=== PATIENT | male | born 1940 | race Caucasian/White ===

== ENCOUNTER 2017-09-15 13:29 | Outpatient (CLI) | payer MEDICARE ==
--- NOTE | 2017-09-15 15:27 | RAD ---
RIGHT SHOULDER THREE VIEWS: History: Right shoulder pain. Myeloma. FINDINGS: Innumerable small lytic lesions are present throughout the ribs, scapula, and humerus. There are dege nerative changes of the acromioclavicular and glenohumeral joints. No acute fracture or dislocation a re visible. IMPRESSION: Severe myelomatous involvement of the right shoulder. Moderate osteoarthritic changes. POS: [facility]
--- NOTE | 2017-09-15 16:11 | RAD ---
LEFT HIP TWO VIEWS: 09/15/17 HISTORY: Myeloma. COMPARISON: Numerous prior examinations. FINDINGS: There is no pathologic fracture. Severe degenerative change of the left hip with articular surface re modeling of the femoral head. There is buttressing of the medial femoral cortex. IMPRESSION: 1. Extensive myeloma. 2. No pathologic fracture. POS: [facility]
== END 2017-09-15 13:30 | disposition home or self-care (01) ==
LOC: RAD 13:29
PROVIDERS: ATTEND Nurse Practitioner Family
DX: C90.00 Multiple myeloma not having achieved remission (principal); M19.011 Primary osteoarthritis, right shoulder
CPT/HCPCS: 80053; 82248; 83615; 84100; 84165; 84550

== ENCOUNTER 2017-09-24 09:17 | Outpatient (CLI) | payer MEDICARE ==
--- NOTE | 2017-09-24 14:20 | EKG ---
Test Reason : Blood Pressure : / mmHG Vent. Rate : 107 BPM Atrial Rate : 107 BPM P-R Int : 166 ms QRS Dur : 150 ms QT Int : 376 ms P-R-T Axes : 070 -22 055 degrees QTc Int : 501 ms Sinus tachycardia Right bundle branch block Abnormal ECG When compared with ECG of 13-MAR-1999 13:57, Right bundle branch block is now Present Confirmed by DR. Keo CHAUDHRY ([id number]) on 09/24/2017 2:19:49 PM Referred By: AALIYAH Confirmed By:DR. Keo CHAUDHRY
== END 2017-09-24 09:18 | disposition home or self-care (01) ==
LOC: EKG 09:17
PROVIDERS: ATTEND Nurse Practitioner Family
DX: Z92.29 Personal history of other drug therapy (principal)
CPT/HCPCS: 93005; 93010

== ENCOUNTER 2018-06-08 18:49 | Emergency (ER) | payer MEDICARE ==
[2018-06-08 20:44] LABS: #Basophils 0.1 thou/uL (0.0-0.2); #Eosinphils 0.2 thou/uL (0.0-0.7); #Lymphocytes 1.2 thou/uL (1.20-3.40); #Monocytes 0.5 thou/uL (0.11-0.59); #Neutrophils 2.2 thou/uL (1.40-6.50); %Basophils 2.1 % (0.0-1.0); %Eosinophils 5.3 % (0.0-10.0); %Lymphocytes 27.9 % (21.0-51.0); %Neutrophils 53.6 % (42.0-75.0); Hemoglobin 11.5 g/dL (14.0-18.0); Mean Corpuscular HGB CONC 33.5 g/dL (32.0-36.0); Mean Corpuscular Volume 98.4 fL (78.0-98.0); Mean Platelet Volume 6.6 fL (7.4-10.4); Platelet Count 221 thou/uL (130-400); RBC Distribution Width 12.6 % (11.5-14.5); White Blood Cell (WBC) Count 4.1 thou/uL (4.8-10.8)
[2018-06-08 22:03] LABS: ALT (SGPT) 15 U/L (8-55); AST (SGOT) 20 U/L (5-34); Albumin 4.2 g/dL (3.4-4.8); Alkaline Phosphatase 104 U/L (40-150); Anion Gap 11 mmol/L (10-20); BUN (Urea Nitrogen) 24 mg/dL (8.4-25.7); Bilirubin, Total 0.3 mg/dL (0.2-1.2); Calc. Creatinine Clearance 0 mL/min (70-130); Calcium 10.6 mg/dL (7.8-10.44); Carbon Dioxide 33 mmol/L (23-31); Chloride 98 mmol/L (98-107); Estimated GFR-MDRD 50; Globulin 2.8 g/dL (2.4-3.5); Glucose 118 mg/dL (83-110); Potassium 3.8 mmol/L (3.5-5.1); Sodium 138 mmol/L (136-145)
== END 2018-06-08 22:28 | disposition home or self-care (01) ==
LOC: ERS 18:49
DX: T46.4X1A Poisoning by angiotensin-converting-enzyme inhibitors, accidental (unintentional), initial encounter (principal); E78.5 Hyperlipidemia, unspecified; I10 Essential (primary) hypertension; Z79.899 Other long term (current) drug therapy
CPT/HCPCS: 80053; 85025; 93005

== ENCOUNTER 2018-09-01 17:16 | Inpatient (IN) | payer MEDICARE ==
[2018-09-01] MEDS ORDERED: Ondansetron ODT 4 MG TAB PO PRN (17:51)
[2018-09-01] MEDS ORDERED: Nitroglycerin 0.4 MG TAB (25 Tab Bottle) SL PRN (17:51)
[2018-09-01] MEDS ORDERED: Acetaminophen 325 MG TAB PO PRN (17:51)
[2018-09-01] MEDS ORDERED: Ondansetron PF 4 MG/2 ML Vial IVP PRN (17:51)
[2018-09-01] MEDS ORDERED: hydrALAZINE 20 MG/ML VIAL SLOW IVP PRN (17:51)
[2018-09-01] MEDS ORDERED: Calcium Carbonate 500 MG ChewTAB PO PRN (17:51)
[2018-09-01] MEDS ORDERED: cloNIDine 0.1 MG TAB PO PRN (17:51)
[2018-09-01] MEDS ORDERED: Bisacodyl 10 MG SUPP PR PRN (17:51)
[2018-09-01] MEDS ORDERED: Sodium Chloride 0.65% Nasal 44 ML BOT EA NARE PRN (17:51)
[2018-09-01] MEDS ORDERED: Diabetic Tussin 200 MG/10 ML UDCUP PO PRN (17:51)
[2018-09-01] MEDS ORDERED: Bisacodyl 5 MG TAB PO PRN (17:51)
[2018-09-01] MEDS ORDERED: Benzonatate 100 MG CAP PO PRN (17:51)
[2018-09-01] MEDS ORDERED: Senokot S 8.6-50 MG TAB PO PRN (17:51)
[2018-09-01] MEDS ORDERED: traMADol HCl 50 MG TAB PO PRN (18:19)
--- NOTE | 2018-09-01 20:44 | HP ---
PRIMARY CARE PHYSICIAN: None. PRIMARY ONCOLOGIST: Dr. Stein. CHIEF COMPLAINT: Generalized weakness, weight loss, poor appetite, and muscle and bone pain. HISTORY OF PRESENTING ILLNESS: Mr. Hill is a very pleasant 78-year-old male with past medical history of multiple myeloma, currently in remission, who presented as a direct admit from Oncology Clinic. He was seen today in the Oncology Clinic because of complaints of generalized weakness and had some blood work drawn. He was found to have a hemoglobin down to 8.8 and calcium up to 14.6 with a creatinine also elevated to 1.66. History is mainly obtained by the patient himself and the case has been discussed with Dr. Stein who has transferred the patient for admission. According to Dr. Stein, Mr. Hill has been doing very well since he had finished treatment about 2 years ago for his multiple myeloma. His followups have revealed negligible M spike in his protein electrophoresis and his creatinine and calcium have been normal. Mr. Hill himself reports that about 5 or 6 weeks ago, he started to feel excessive weakness and tiredness. Normally, he used to walk around with the help of a cane, but he is bedridden for all this time. He started to have pain starting in his feet and then he started to have pain in his legs and then hips. Now it hurts to cough in the ribcage on both sides. He has also lost his appetite and his reports 30-pound weight loss in the last 5 or 6 weeks. He denies any bleeding in his urine or stool. He does have increased urinary frequency and can hardly make it to the bathroom, mainly because of the weakness and urgency. He denies any fever, chills, or sick contacts. He denies any recent illness. He denies any chest pain or shortness of breath. He is now being admitted to the hospital for the treatment and investigation of hypercalcemia, acute renal insufficiency, and unexplained new anemia. His baseline hemoglobin seems to be around 13 two years ago and the last hemoglobin on 06/08/2018 was 11.5. PAST MEDICAL HISTORY: 1. History of multiple myeloma, in remission. 2. Hypertension. 3. Dyslipidemia. 4. Chronic neuropathy. 5. Osteoarthritis. PAST SURGICAL HISTORY: 1. Achilles tendon surgery x3. 2. Left arm surgery. 3. Appendectomy. PSYCHIATRIC HISTORY: No anxiety. No depression. SOCIAL HISTORY: He is and lives at home with his . No history of drug, tobacco, or alcohol abuse. ALLERGIES: INCLUDE PENICILLIN. HOME MEDICATIONS: Not updated as yet, but the patient reports that he is on fentanyl patch and Maxzide and pravastatin among other medications. FAMILY HISTORY: Positive for breast and stomach cancer. REVIEW OF SYSTEMS: A 12-point review of system is done. It is negative except for those mentioned in the history and physical. LABORATORY DATA: Labs are reviewed that were done today showing a creatinine of 1.66 with normal BUN of 20, uric acid is high at 9.1, and calcium is 14.6. Liver enzymes are unremarkable. His albumin is 4.4, globulin 2.7. His IgG level that was done today is normal at 461. His SPEP done in May 2018 appears unremarkable without evidence of any monoclonal protein. Hemoglobin at Dr. Stein' office today was 8.8. PHYSICAL EXAMINATION: VITAL SIGNS: Temperature 97.4, pulse of 100, respirations 18, saturating 98% on room air, blood pressure 170/90. GENERAL: No acute distress. He does appear pale and somewhat weak, but awake, alert, and oriented x3. is at bedside. HEENT: Mucosal and conjunctival pallor are noticed. Mucosa is slightly dry. No oropharyngeal exudate or erythema. Head is normocephalic, atraumatic. Pupils are equal, reactive to light and accommodation. Extraocular movement intact. NECK: Supple without any lymphadenopathy, JVD, or bruit. CHEST: Clear to auscultation without any wheezing, rales, or rhonchi. CARDIAC: Rate and rhythm are regular without any murmurs, rubs, or gallops. ABDOMEN: Soft, nontender, nondistended with positive bowel sounds. EXTREMITIES: Free of any cyanosis, clubbing, or edema. Pulses are felt bilaterally. NEUROLOGIC: Nonfocal. SKIN: Free of any rashes or bruises. Feels warm and dry to touch. PSYCHIATRIC: Normal affect. IMPRESSION AND PLAN: 1. Hypercalcemia. The patient was given one dose of Zometa in Dr. Stein' office. We will recheck in the morning and start him on aggressive IV fluid resuscitation. It is suspicious that his myeloma has returned given his weight loss, bone pain, acute kidney injury, and anemia. SPEP has been sent and we will order a nuclear medicine bone scan as well to rule out other malignancies. CT chest, abdomen, and pelvis will be done without contrast. We will request consultation with Nephrology for hypercalcemia and also send for a PTH, though it might be skewed given his history of myeloma or any other active cancer. The patient has no exogenous calcium supplements that he could recall. We will also obtain urinalysis to check urinary calcium excretion if necessary. 2. Acute kidney insufficiency, likely due to poor p.o. intake versus myeloma, renal disease. We will consult Nephrology and resuscitate him with IV fluids and obtain a CT scan of the abdomen for further evaluation. Urinalysis has been ordered to assess for any urinary tract infection, hematuria, proteinuria, or ketones. 3. Anemia. The patient's baseline hemoglobin has been in the 13s two years ago. It is suspicious for myeloma given the recent weight loss. He has no overt bleeding. We will recheck in the morning and keep hemoglobin above 7 and transfuse as necessary. We will check iron, B12, and folic acid levels as well. 4. History of multiple myeloma and suspicion of a recurrence is high at this time. SPEP and CT scan of the abdomen, pelvis, and chest has been ordered. We will request consultation with Oncology, Dr. Stein, in the morning. The patient is status post complete treatment about 2 years ago. 5. Generalized weakness. We will have Occupational Therapy and Physical Therapy see the patient while in the hospital. 6. Hypertension. Resume home medications once confirmed. 7. Dyslipidemia. Restart home medications once confirmed. 8. Pain management. We will continue his fentanyl patch and add p.r.n. medications. 9. Code status: Full code, discussed with the patient. 10. Deep venous thrombosis and gastrointestinal prophylaxis. DISPOSITION: Mr. Hill is currently being admitted to the hospital for hypercalcemia, acute renal insufficiency. ESTIMATED LENGTH OF STAY: At least 2 to 3 midnights. Job ID: [id number]
[2018-09-01] MEDS: Famotidine 20 MG TAB PO SCH (21:11)
[2018-09-01] MEDS: Sodium Chloride 0.9% 1,000 ML IV SCH (21:12)
[2018-09-01 21:42] LABS: Bilirubin Negative (Negative); Blood, Urine Trace (Negative); Clarity CLEAR (Clear); Glucose, Urine (Dipstick) Negative (Negative); Leukocyte Negative (Negative); Nitrite Negative (Negative); Protein, Urine (Dipstick) 100 mg/dL (Neg-Trace); Specific Gravity, Urine 1.011 (1.002-1.036); Urobilinogen 0.2 mg/dL (0.2-1.0)
[2018-09-01 21:44] LABS: Bacteria/HPF None Seen HPF (None Seen); Hyaline Casts/LPF 0-3 HYALINE CAST LPF (0-3 Hyaline); RBC/HPF 0-3 HPF (0-3); Squamous Epithelial None Seen HPF (0-3); WBC/HPF 0-3 HPF (0-3)
[2018-09-01 22:23] VITALS: BMI 27.2
--- NOTE | 2018-09-01 22:32 | CT ---
CT THORAX NONCONTRAST CT ABDOMEN NONCONTRAST CT PELVIS NONCONTRAST: 09/01/18 HISTORY: Hypercalcemia. Multiple myeloma in remission. FINDINGS: There is very extensive, severe osteolytic involvement of all skeletal structures, consistent with ei ther osseous metastatic disease or multiple myeloma. There are sclerotic reactive changes intermixed with the osteolytic infiltration of all bony structures. There are soft tissue expansile mass compone nts involving some of the bony lesions, especially multiple ribs. There is no consolidation, pulmonar y edema, pleural effusion, suspicious pulmonary mass or pneumothorax. There is ectasia and tortuosity of the thoracic aorta. No aneurysm of the thoracic or abdominal aorta. The urinary bladder is disten ded, but has normal, thin villa. No mediastinal lymphadenopathy or pericardial effusion. No renal, ur eteral, or bladder calculus identified. No hydronephrosis. Almost 2 cm low density round lesion at th e anterior parenchyma of the left renal mid pole parenchyma, probably a cyst. No signs of colonic div erticulitis. No small bowel dilation. No ascites or pneumoperitoneum. Within the limitations of a non contrast scan, no definite major pathology identified involving the right kidney, adrenals, liver, or spleen. Atrophic pancreas. No signs of acute pancreatitis. Mildly distended gallbladder without surr ounding fat stranding or wall thickening. IMPRESSION: 1. Very severe, very extensive osteolytic lesions throughout the entire skeleton, consistent wit h either very extensive multiple myeloma or very extensive osseous skeletal metastasis. 2. Sclerotic changes intermixed with the osteolytic process. This could represent reactive scler otic changes, a metabolic disease, or a superimposted very diffuse osteoblastic metastatic disease. 3. No evidence of acute pulmonary process or acute process within the abdominal cavity or pelvic cavity. POS: [facility]
--- NOTE | 2018-09-02 02:33 | CON ---
DATE OF CONSULTATION: HISTORY OF PRESENT ILLNESS: Mr. Hill is an 78-year-old white male with known history of smoldering multiple myeloma and was admitted for a calcium of 14.6. IV hydration will be initiated. In addition, the patient today has received Zometa. In addition, he takes a pain medication, Vicodin. We are being consulted for his acute kidney injury/on top of his chronic renal failure. He is also noted to be hypercalcemic. REVIEW OF SYSTEMS: Positive for generalized malaise, occasional joint pains. No nausea. No vomiting. No productive cough. No shortness of breath. No headache. No diplopia. No syncopal episode. No diarrhea. No constipation. Occasional joint pains. No headache. MEDICATIONS: Currently on, 1. Tylenol 650 mg q.4 p.r.n. 2. Tums 1000 mg q.4 hours. 3. Clonidine 0.1 mg q.4 p.r.n. 4. Lovenox 40 mg subcu daily. 5. Pepcid 20 mg p.o. b.i.d. 6. Normal saline at 150 mL/hour. 7. Ultram 50 mg q.4 p.r.n. PAST MEDICAL HISTORY: 1. Smoldering multiple myeloma, diagnosed back in 1998 - treated with radiotherapy and chemotherapy with Velcade and Cytoxan. He also had been on Revlimid. The patient has been on Decadron also and lenalidomide. 2. The patient also has history of neuropathy, chronic pain, and hypertension. SOCIAL HISTORY: The patient is and lives with this , lives in [place], 2 children. No smoking. Alcohol use rarely. 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 Education, 4 years of college. Status post blood transfusion. No drug abuse. Sedentary lifestyle. FAMILY HISTORY: No family history of ESRD. ALLERGIES: PENICILLIN. TRAUMA: None. IMMUNIZATION: Up to date. PRIOR HOSPITALIZATION: Please see past medical history. PHYSICAL EXAMINATION: VITAL SIGNS: Blood pressure 170/90, heart rate 100, temperature 97.4, respiratory rate 18, pulse ox 98% on room air. GENERAL: Awake, alert, comfortable, not in overt distress. SKIN: Adequate turgor. HEENT: He has pinkish conjunctivae, anicteric sclerae. No neck mass. No carotid bruits. No JVD. CHEST: No deformities. LUNGS: Clear breath sounds. No wheezing. No crackles. HEART: Normal sinus rhythm. No murmur. No gallops. No rubs. ABDOMEN: Globular, soft, nontender. No masses. EXTREMITIES: No edema. No deformities. LABORATORY DATA: September 01, 2018; sodium 140, potassium 4.2, chloride 104, carbon dioxide 29, BUN 20, creatinine 1.66, glucose 110. Uric acid 9.1, calcium 14.6. AST 22, ALT 11. Albumin 4.4. Urinalysis pending. ASSESSMENT AND PLAN: 1. Hypercalcemia - the patient has been initiated normal saline at 150 mL/hour. Agree with current management. My bias, since the patient looks euvolemic, he is to increase the IV fluid to 200 mL an hour. I do anticipate improvement with serum calcium. The patient recently has also received Zometa. 2. Acute kidney injury - this is most likely hemodynamically mediated dysfunction related to the hypercalcemia. Normal saline at 200 mL an hour. Please note there is no indication for any dialytic intervention. 3. Multiple myeloma, managed by his oncologist. The patient has had several chemotherapies in the past as well as radiation. 4. Overall, agree with current management. Job ID: [id number]
[2018-09-02] MEDS: Sodium Chloride 0.9% 1,000 ML IV SCH ×4 (02:43→23:20)
[2018-09-02 05:42] LABS: #Eosinphils 0.2 thou/uL (0.0-0.7); #Lymphocytes 1.1 thou/uL (1.20-3.40); #Monocytes 0.3 thou/uL (0.11-0.59); #Neutrophils 2.1 thou/uL (1.40-6.50); %Basophils 0.2 % (0.0-1.0); %Eosinophils 4.4 % (0.0-10.0); %Lymphocytes 29.1 % (21.0-51.0); %Monocytes 9.3 % (0.0-10.0); Hemoglobin 8.4 g/dL (14.0-18.0); Mean Corpuscular HGB CONC 33.1 g/dL (32.0-36.0); Mean Corpuscular Hemoglobin 33.6 pg (27.0-31.0); Mean Platelet Volume 6.8 fL (7.4-10.4); Platelet Count 169 thou/uL (130-400); RBC Distribution Width 14.7 % (11.5-14.5); Red Blood Cell (RBC) Count 2.48 mill/uL (4.70-6.10); White Blood Cell (WBC) Count 3.6 thou/uL (4.8-10.8)
[2018-09-02 05:59] LABS: Iron 77 ug/dL (65-175); Iron Binding Capacity, Total 270 mcg/dL (261-462)
[2018-09-02 06:20] LABS: ALT (SGPT) 10 U/L (8-55); AST (SGOT) 19 U/L (5-34); Albumin 3.7 g/dL (3.4-4.8); Alkaline Phosphatase 77 U/L (40-150); Anion Gap 8 mmol/L (10-20); BUN (Urea Nitrogen) 18 mg/dL (8.4-25.7); Bilirubin, Total 0.3 mg/dL (0.2-1.2); Calc. Creatinine Clearance 48 mL/min (70-130); Carbon Dioxide 29 mmol/L (23-31); Chloride 109 mmol/L (98-107); Estimated GFR-MDRD 45; Globulin 2.5 g/dL (2.4-3.5); Glucose 95 mg/dL (83-110); Iron 78 ug/dL (65-175); Iron Binding Capacity, Total 268 mcg/dL (261-462); Magnesium 1.6 mg/dL (1.6-2.6); Phosphorus 3.6 mg/dL (2.3-4.7); Potassium 3.7 mmol/L (3.5-5.1); Protein, Total 6.2 g/dL (5.8-8.1); Sodium 142 mmol/L (136-145)
[2018-09-02 06:38] LABS: Calcium 12.9 mg/dL (7.8-10.44)
[2018-09-02 06:49] LABS: Folate (Folic Acid) 10.8 ng/mL (7.0-31.4)
[2018-09-02] MEDS: Enoxaparin Sodium 40 MG/0.4 ML SYRINGE SC SCH (08:24)
[2018-09-02] MEDS: Famotidine 20 MG TAB PO SCH ×3 (08:24→20:37)
[2018-09-02] MEDS: HYDROcodone/Acetaminophen 10/325 mg Tablet PO PRN (13:11)
--- NOTE | 2018-09-02 14:35 | RAD ---
OSSEOUS SURVEY: DATE: 09/02/2018. HISTORY: Hypercalcemia, anemia, multiple myeloma. COMPARISON: 01/10/2010. FINDINGS: A total of 19 images are provided including lateral image of the skull, AP and lateral images of the spine, AP view pelvis, and AP view of the upper and lower extremities. FINDINGS: There is diffuse mottling of the visualized osseous structures throughout the spine, bilateral ribs, pelvis, bilateral upper and lower extremities predominantly involving the bilateral humeri and bilate ral femurs. While the degree of mottling was present on prior study in 2009, the degree of mottling has progressed from prior exam. Views of the left hip on 09/15/2017 demonstrated the diffuse mottlin g throughout the pelvis and involving the visualized proximal left femur overall similar to today's e xam. The diffuse mottling of the right humerus and right scapula is similar to views of the right hu merus on 08/06/2015. Degenerative changes are again present throughout the spine. Vascular calcifications are seen in the thoracic and abdominal aorta. IMPRESSION: Diffuse and extensive osteolytic lesions throughout the visualized osseous structures with mottled ap pearance, which may be related to either extensive multiple myeloma or extensive osseous metastatic d isease. POS: [facility]
[2018-09-02] MEDS: SODIUM CHLORIDE 0.9% IVPB SCH (14:41)
[2018-09-02] MEDS: DEXAMETHASONE SOD PHOSPHATE IVPB SCH (14:41)
--- NOTE | 2018-09-02 14:49 | PDOC.PN ---
- Subjective Encounter Start Date: 09/02/18 Encounter Start Time: 14:47 Subjective: c/o on and off pain in both feet and leg in the bones -: no N/V/D.constipated - Objective Resuscitation Status - Order Detail: 09/01/18 19:24 Resuscitation Status Routine Resuscitation Status: FULL: Full Resuscitation Discussed with: discussed w pt HILARIO Reviewed: Yes Vital Signs & Weight: Vital Signs (12 hours) Temp Pulse Resp BP Pulse Ox 09/02/18 11:43 97.7 F 120 H 20 126/63 96 09/02/18 07:54 97.8 F 96 20 148/79 H 94 L 09/02/18 04:24 98.0 F 94 18 132/72 93 L Weight Weight 190 lb I&O: 09/01/18 09/02/18 09/03/18 06:59 06:59 06:59 Intake Total 2220 Output Total 550 Balance 1670 Result Diagrams: 09/02/18 04:44 09/02/18 04:44 Additional Labs: Laboratory Tests 06/15/18 09/01/18 09/02/18 16:07 15:19 04:44 Creatinine 1.43 H 1.66 H 1.50 H Calcium 11.2 H 14.6 H* 12.9 H* Radiology Reviewed by me: Yes (CT and Bone scan-extensive osteolytic bony lesions) Phys Exam - Physical Examination Constitutional: NAD pale HEENT: PERRLA, moist MMs, sclera anicteric, oral pharynx no lesions Neck: no nodes, no JVD, supple, full ROM Respiratory: no wheezing, no rales, no rhonchi, clear to auscultation bilateral Cardiovascular: RRR, no significant murmur, no rub Gastrointestinal: soft, non-tender, no distention, positive bowel sounds Musculoskeletal: no edema, pulses present Neurological: non-focal, normal sensation, moves all 4 limbs Psychiatric: normal affect, A&O x 3 Skin: no rash Dx/Plan (1) Hypercalcemia Code(s): E83.52 - HYPERCALCEMIA Status: Acute (2) HILTON (acute kidney injury) Code(s): N17.9 - ACUTE KIDNEY FAILURE, UNSPECIFIED Status: Acute (3) Intractable pain Code(s): R52 - PAIN, UNSPECIFIED Status: Acute (4) Normochromic normocytic anemia Code(s): D64.9 - ANEMIA, UNSPECIFIED Status: Acute (5) Osseous metastasis Code(s): C79.51 - SECONDARY MALIGNANT NEOPLASM OF BONE Status: Acute (6) HTN (hypertension) Code(s): I10 - ESSENTIAL (PRIMARY) HYPERTENSION Status: Chronic (7) Multiple myeloma Code(s): C90.00 - MULTIPLE MYELOMA NOT HAVING ACHIEVED REMISSION Status: Chronic - Plan PT/OT, DVT proph w/SCDs Likley MM recurrance.will defer to oncology.started on decadron -: pain control -: Ca and renal Fx better w IVF.s/o Zometa.monitor -: H/H stable.likley drop d/y Myeloma -: OT/PT.supportive care. Findings discussed w Pt.restart Home meds * . Review of Systems - Review of Systems Constitutional: weakness, malaise Eyes: negative: Pain, Vision Change, Conjunctivae Inflammation, Eyelid Inflammation, Redness, Other ENT: negative: Ear Pain, Ear Discharge, Nose Pain, Nose Discharge, Nose Congestion, Mouth Pain, Mouth Swelling, Throat Pain, Throat Swelling, Other Respiratory: negative: Cough, Dry, Shortness of Breath, Hemoptysis, SOB with Excertion, Pleuritic Pain, Sputum, Wheezing Cardiovascular: negative: chest pain, palpitations, orthopnea, paroxysmal nocturnal dyspnea, edema, light headedness, other Gastrointestinal: Constipation. negative: Nausea, Vomiting, Abdominal Pain, Diarrhea, Melena, Hematochezia, Other Genitourinary: negative: Dysuria, Frequency, Incontinence, Hematuria, Retention , Other Musculoskeletal: Foot Pain. negative: Neck Pain, Shoulder Pain, Arm Pain, Back Pain, Hand Pain, Leg Pain, Other Skin: negative: Rash, Lesions, Vicente, Bruising, Other Neurological: negative: Weakness, Numbness, Incoordination, Change in Speech, Confusion, Seizures, Other - Medications/Allergies Allergies/Adverse Reactions: Allergies Allergy/AdvReac Type Severity Reaction Status Date / Time Penicillins Allergy Verified 05/27/16 19:24 Medications: Current Medications Acetaminophen (Tylenol) 650 mg PO Q4H PRN PRN Reason: Headache/Fever/Mild Pain (1-3) Hydrocodone Bitart/Acetaminophen ([place] 10/325) 0.5 tab PO Q8H PRN PRN Reason: Severe Pain (7-10) Last Admin: 09/02/18 13:11 Dose: 0.5 tab Amitriptyline HCl (Elavil) 100 mg PO HS [facility] Atorvastatin Calcium (Lipitor) 10 mg PO HS [facility] Benzonatate (Tessalon) 100 mg PO Q6H PRN PRN Reason: Cough Bisacodyl (Dulcolax) 10 mg PO DAILYPRN PRN PRN Reason: Constipation Bisacodyl (Dulcolax) 10 mg [place] DAILYPRN PRN PRN Reason: Constipation Calcium Carbonate (Tums) 1,000 mg PO Q4H PRN PRN Reason: Heartburn or Indigestion Clonidine (Catapres) 0.1 mg PO Q4H PRN PRN Reason: SBP > 160____ Enoxaparin Sodium (Lovenox) 40 mg SC 0900 [facility] Last Admin: 09/02/18 08:24 Dose: 40 mg Famotidine (Pepcid) 20 mg PO BID [facility] Last Admin: 09/02/18 08:26 Dose: 20 mg Fentanyl (Duragesic) 25 mcg TD Q3D [facility] Stop: 09/04/18 10:59 Last Admin: 09/01/18 23:37 Dose: 25 mcg Fentanyl (Duragesic) 25 mcg TD Q3D [facility] Guaifenesin (Robitussin Sf) 200 mg PO Q4H PRN PRN Reason: Cough Hydralazine HCl (Apresoline) 10 mg SLOW IVP Q4H PRN PRN Reason: SBP > 180 and HR < 70 Sodium Chloride (Normal Saline 0.9%) 1,000 mls @ 150 mls/hr IV .Q6H40M [facility] Last Admin: 09/02/18 08:25 Dose: 1,000 mls Dexamethasone Sodium Phosphate (30 mg/ Sodium Chloride) 53 mls @ 92.174 mls/hr IVPB Q24HR [facility] Stop: 09/05/18 14:01 Nitroglycerin (Nitrostat) 0.4 mg SL Q5MIN PRN PRN Reason: Chest Pain Ondansetron HCl (Zofran Odt) 4 mg PO Q6H PRN PRN Reason: Nausea/Vomiting Ondansetron HCl (Zofran) 4 mg IVP Q6H PRN PRN Reason: Nausea/Vomiting Polyethylene Glycol (Miralax) 17 gm PO Q12HR [facility] Senna/Docusate Sodium (Senokot S) 2 tab PO BID PRN PRN Reason: Constipation Sodium Chloride ([place] Nasal [place] 0.65%) 0 ml EA NARE QIDPRN PRN PRN Reason: Nasal Congestion Tramadol HCl (Ultram) 50 mg PO Q4H PRN PRN Reason: Pain 4-6 Last Admin: 09/02/18 02:40 Dose: 50 mg
--- NOTE | 2018-09-02 19:35 | NM ---
NUCLEAR MEDICINE BONE SCAN WHOLE BODY: (SKELETAL SCINTIGRAPHY) 09/02/18 HISTORY: 78-year-old male with hypercalcemia and history of multiple myeloma. Abnormal skeletal survey. TECHNIQUE: IV injection of [id number]: 29.5 mCi 3 hour delayed whole body skeletal scintigraphy in anterior and posterior views. FINDINGS: There are numerous foci of abnormally increased uptake throughout the bilateral ribs, and multiple ot her areas of the thoracic spine, right femoral condyles, and left hip. There are lesser degrees of he terogeneously increased uptake in the pelvis and bilateral humeral diaphyses. IMPRESSION: Numerous foci of increased uptake representing areas of increased osteoblastic activity. These would correspond to some of the sclerotic areas demonstrated on the recent bone survey (the osteolytic invo lvement is much more extensive than this, consistent with the established diagnosis of multiple myelo ma). The osteoblastic activity may represent healing changes in response to the myeloma lesions and p ossibly in response to any pathological fractures that may be present. Recommend correlation with ser um PSA levels to rule out the other possibility of metastatic prostate cancer superimposed on the mul tiple myeloma. SAKSIH Bello POS: [facility]
[2018-09-02] MEDS: Polyethylene Glycol 3350 17 GM Packet PO SCH (20:07)
[2018-09-02] MEDS: Docusate 100 MG CAP PO SCH (20:07)
[2018-09-02] MEDS: Atorvastatin Calcium 10 MG TAB PO SCH (20:07)
[2018-09-02] MEDS: Amitriptyline HCl 100 MG TAB PO SCH (20:07)
[2018-09-02] MEDS ORDERED: Lorazepam 2 MG/ML VIAL SLOW IVP SCH (22:15)
[2018-09-02] MEDS ORDERED: diphenhydrAMINE 50 MG/ML VIAL IVP SCH (22:15)
--- NOTE | 2018-09-03 02:06 | HP ---
HISTORY OF PRESENT ILLNESS: Mr. Hill is an 78-year-old white male, who was seen for his acute kidney injury and hypercalcemia. He has underlying history of multiple myeloma. A skeletal survey done today shows metastatic bone lesions. His serum calcium is slightly improved from admission. He is receiving normal saline as well as received Zometa. He is followed by his oncologist. Renal function has also slightly improved. No other complaints. He is noted to be quite confused today. PHYSICAL EXAMINATION: VITAL SIGNS: Blood pressure is 145/63, heart rate 89, respiratory rate 20, temperature 98.1, pulse ox 95%. GENERAL: Noted to be awake, slightly confused, not in distress, ambulatory. SKIN: Adequate turgor. HEENT: He has pinkish conjunctivae. Anicteric sclerae. NECK: No neck mass. No carotid bruits. No JVD. CHEST: No deformities. LUNGS: Decreased breath sounds. HEART: Normal sinus rhythm. No murmurs. No gallops. No rubs. ABDOMEN: Globular, soft, and nontender. No masses. EXTREMITIES: No edema. No deformities. MEDICATIONS: Medications of September 02, 2018, were reviewed. LABORATORY DATA: Laboratories of September 02, 2018, white count 3.6, hemoglobin 8.4. September 01, 2018, sodium 140, potassium 4.2, chloride 104, carbon dioxide 29, BUN 20, creatinine 1.66, calcium is 14.6. September 02, 2018, sodium 142, potassium 3.7, chloride 109, carbon dioxide 29, BUN 18, creatinine 1.5, glucose 95, calcium 12.9, and magnesium 1.6. PTH is 7.8, decreased. Bone skeletal survey shows diffuse and extensive osteolytic lesions throughout the visualized osseous structures with mottled appearance. ASSESSMENT AND PLAN: 1. Acute kidney injury-hemodynamically mediated dysfunction, improving renal function. Hypercalcemia may be playing a factor. Currently, the patient received Zometa and currently on normal saline. Continue current management. No indication for any dialytic intervention. 2. Hypercalcemia, improved calcium from 14 to 12. Status post Zometa infusion. Continue normal saline. 3. As per Dr. Stein, the patient can be discharged. From a renal point of view, he can go home any time. We will be signing off. Please recall if needed. Job ID: [id number]
[2018-09-03] MEDS: HYDROcodone/Acetaminophen 10/325 mg Tablet PO PRN (03:16)
[2018-09-03] MEDS ORDERED: Ziprasidone 20 MG VIAL IM SCH (04:00)
[2018-09-03] MEDS: Sodium Chloride 0.9% 1,000 ML IV SCH ×2 (05:01→09:01)
[2018-09-03] MEDS: Enoxaparin Sodium 40 MG/0.4 ML SYRINGE SC SCH (07:04)
[2018-09-03] MEDS: Famotidine 20 MG TAB PO SCH ×3 (07:25→20:35)
[2018-09-03] MEDS: Docusate 100 MG CAP PO SCH ×3 (07:25→20:35)
[2018-09-03] MEDS: Polyethylene Glycol 3350 17 GM Packet PO SCH ×2 (08:07→20:35)
[2018-09-03 08:33] LABS: #Lymphocytes 0.5 thou/uL (1.20-3.40); #Monocytes 0.2 thou/uL (0.11-0.59); #Neutrophils 3.6 thou/uL (1.40-6.50); %Eosinophils 0.2 % (0.0-10.0); %Lymphocytes 12.1 % (21.0-51.0); %Monocytes 5.2 % (0.0-10.0); %Neutrophils 82.5 % (42.0-75.0); Hemoglobin 8.1 g/dL (14.0-18.0); Mean Corpuscular HGB CONC 33.8 g/dL (32.0-36.0); Mean Corpuscular Hemoglobin 34.2 pg (27.0-31.0); Platelet Count 155 thou/uL (130-400); RBC Distribution Width 14.6 % (11.5-14.5); Red Blood Cell (RBC) Count 2.37 mill/uL (4.70-6.10); White Blood Cell (WBC) Count 4.4 thou/uL (4.8-10.8)
[2018-09-03 08:55] LABS: Anion Gap 14 mmol/L (10-20); BUN (Urea Nitrogen) 20 mg/dL (8.4-25.7); Calc. Creatinine Clearance 47 mL/min (70-130); Calcium 11.6 mg/dL (7.8-10.44); Carbon Dioxide 25 mmol/L (23-31); Chloride 109 mmol/L (98-107); Estimated GFR-MDRD 44; Glucose 136 mg/dL (83-110); Potassium 3.6 mmol/L (3.5-5.1); Sodium 144 mmol/L (136-145)
[2018-09-03] MEDS ORDERED: NIFEdipine XL 60 MG TAB PO SCH (09:15)
[2018-09-03] MEDS ORDERED: Iopamidol 370 76% 100 ML VIAL ONE (13:32)
[2018-09-03] MEDS: SODIUM CHLORIDE 0.9% IVPB SCH (14:38)
[2018-09-03] MEDS: DEXAMETHASONE SOD PHOSPHATE IVPB SCH (14:38)
[2018-09-03] MEDS ORDERED: Furosemide 40 MG/4 ML VIAL SLOW IVP SCH (14:45)
--- NOTE | 2018-09-03 14:46 | PDOC.PN ---
- Subjective Encounter Start Date: 09/03/18 Encounter Start Time: 14:43 Subjective: pt confused this mroning & had rough night w restlessness & confusion -: family report that the bony lesions are there for a while -: report confusion since fentanyl patch started as an OP - Objective Resuscitation Status - Order Detail: 09/01/18 19:24 Resuscitation Status Routine Resuscitation Status: FULL: Full Resuscitation Discussed with: discussed w pt MAR Reviewed: Yes Vital Signs & Weight: Vital Signs (12 hours) Temp Pulse Pulse Pulse Resp BP BP 09/03/18 14:31 98.7 F 106 H 35 H 09/03/18 10:22 83 09/03/18 08:58 83 83 170/75 H 173/69 H 09/03/18 07:44 98.3 F 83 18 BP Pulse Ox 09/03/18 14:31 155/74 H 97 09/03/18 10:22 09/03/18 08:58 09/03/18 07:44 178/87 H 92 L Weight Weight 190 lb I&O: 09/02/18 09/03/18 09/04/18 06:59 06:59 06:59 Intake Total 2220 1800 Output Total 550 450 Balance 1670 1350 Result Diagrams: 09/03/18 08:23 09/03/18 08:23 Additional Labs: Laboratory Tests 06/15/18 09/01/18 09/02/18 16:07 15:19 04:44 Creatinine 1.43 H 1.66 H 1.50 H Calcium 14.6 H* 12.9 H* 09/03/18 08:23 Creatinine 1.52 H Calcium 11.6 H Phys Exam - Physical Examination Constitutional: NAD pale.slow and lethrgic.confused but follows simple commands HEENT: PERRLA, moist MMs, sclera anicteric, oral pharynx no lesions Neck: no nodes, no JVD, supple, full ROM Respiratory: no wheezing, no rales, no rhonchi, clear to auscultation bilateral Cardiovascular: RRR, no significant murmur Gastrointestinal: soft, non-tender, no distention, positive bowel sounds Musculoskeletal: no edema, pulses present Neurological: non-focal, normal sensation, moves all 4 limbs Skin: no rash Dx/Plan (1) Hypercalcemia Code(s): E83.52 - HYPERCALCEMIA Status: Acute (2) HILTON (acute kidney injury) Code(s): N17.9 - ACUTE KIDNEY FAILURE, UNSPECIFIED Status: Acute (3) Intractable pain Code(s): R52 - PAIN, UNSPECIFIED Status: Acute (4) Normochromic normocytic anemia Code(s): D64.9 - ANEMIA, UNSPECIFIED Status: Acute (5) 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 -: Ca and Cr better. stop IVF to prevent fluid OL -: HH.am labs.on decadronn by oncology.Recs awaited * . Review of Systems - Review of Systems Constitutional: weakness, malaise Musculoskeletal: Foot Pain - Medications/Allergies Allergies/Adverse Reactions: Allergies Allergy/AdvReac Type Severity Reaction Status Date / Time Penicillins Allergy Verified 05/27/16 19:24 Medications: Current Medications Acetaminophen (Tylenol) 650 mg PO Q4H PRN PRN Reason: Headache/Fever/Mild Pain (1-3) Hydrocodone Bitart/Acetaminophen ([place] 10/325) 0.5 tab PO Q8H PRN PRN Reason: Severe Pain (7-10) Last Admin: 09/03/18 03:16 Dose: 0.5 tab Amitriptyline HCl (Elavil) 100 mg PO HS [facility] Last Admin: 09/02/18 20:07 Dose: 100 mg Atorvastatin Calcium (Lipitor) 10 mg PO HS [facility] Last Admin: 09/02/18 20:07 Dose: 10 mg Benzonatate (Tessalon) 100 mg PO Q6H PRN PRN Reason: Cough Bisacodyl (Dulcolax) 10 mg PO DAILYPRN PRN PRN Reason: Constipation Bisacodyl (Dulcolax) 10 mg [place] DAILYPRN PRN PRN Reason: Constipation Calcium Carbonate (Tums) 1,000 mg PO Q4H PRN PRN Reason: Heartburn or Indigestion Clonidine (Catapres) 0.1 mg PO Q4H PRN PRN Reason: SBP > 160____ Docusate Sodium (Colace) 100 mg PO BID [facility] Last Admin: 09/02/18 20:07 Dose: 100 mg Enoxaparin Sodium (Lovenox) 40 mg SC 0900 [facility] Last Admin: 09/03/18 07:04 Dose: Not Given Famotidine (Pepcid) 20 mg PO BID [facility] Last Admin: 09/02/18 20:37 Dose: 20 mg Furosemide (Lasix) 40 mg SLOW IVP NOW [facility] Stop: 09/03/18 16:45 Guaifenesin (Robitussin Sf) 200 mg PO Q4H PRN PRN Reason: Cough Hydralazine HCl (Apresoline) 10 mg SLOW IVP Q4H PRN PRN Reason: SBP > 180 and HR < 70 Dexamethasone Sodium Phosphate (30 mg/ Sodium Chloride) 53 mls @ 92.174 mls/hr IVPB Q24HR [facility] Stop: 09/05/18 14:01 Last Admin: 09/03/18 14:38 Dose: 53 mls Nifedipine (Procardia Xl) 30 mg PO DAILY [facility] Nitroglycerin (Nitrostat) 0.4 mg SL Q5MIN PRN PRN Reason: Chest Pain Ondansetron HCl (Zofran Odt) 4 mg PO Q6H PRN PRN Reason: Nausea/Vomiting Ondansetron HCl (Zofran) 4 mg IVP Q6H PRN PRN Reason: Nausea/Vomiting Polyethylene Glycol (Miralax) 17 gm PO Q12HR [facility] Last Admin: 09/03/18 08:07 Dose: 17 gm Senna/Docusate Sodium (Senokot S) 2 tab PO BID PRN PRN Reason: Constipation Sodium Chloride ([place] Nasal [place] 0.65%) 0 ml [place] NARE QIDPRN PRN PRN Reason: Nasal Congestion Sodium Chloride (Flush - Normal Saline) 10 ml IVF PRN PRN PRN Reason: Saline Flush Tramadol HCl (Ultram) 50 mg PO Q4H PRN PRN Reason: Pain 4-6 Last Admin: 09/02/18 02:40 Dose: 50 mg
--- NOTE | 2018-09-03 15:41 | RAD ---
RADIOGRAPH CHEST 1 VIEW: Date: Time: 1419 hours HISTORY: 78-year-old male with history of multiple myeloma. FINDINGS: The thoracic aorta is tortuous and ectatic. There is no evidence of air space density, pneumothorax, or pulmonary edema. The lateral costophrenic angles are sharp. Interstitial markings are diffusely prominent. There are extensive osteolytic lesions throughout all visualized skeletal structures. These are surro unded by sclerotic changes which may represent healing changes or perhaps some superimposed metabolic bone disease or sclerotic metastases. IMPRESSION: 1. No acute pulmonary findings. 2. Ectasia of thoracic aorta. 3. Evidence for very extensive multiple myeloma. jn [] POS: [facility]
--- NOTE | 2018-09-03 16:39 | CT ---
CT OF HEAD WITH AND WITHOUT CONTRAST: 09/03/18 INDICATION: History of myeloma. FINDINGS: Noncontrast head CT reveals age appropriate size of ventricular system without evidence of intracrani al hemorrhage, mass effect or midline shift. There is no evidence of focal destructive lesion of the osseous calvarium. No pathologic intra-axial enhancing mass is present. Motion artifact does limit ev aluation of the postcontrast scan. IMPRESSION: No acute intracranial hemorrhage or mass. No evidence of a focal osseous destructive lesion of the ca lvarium. POS: [facility]
[2018-09-03] MEDS: Morphine 2 MG/ML SYRINGE SLOW IVP PRN ×2 (17:33→21:35)
[2018-09-03] MEDS: Atorvastatin Calcium 10 MG TAB PO SCH (20:34)
[2018-09-03] MEDS: Amitriptyline HCl 100 MG TAB PO SCH (20:34)
[2018-09-04 06:33] LABS: Anion Gap 13 mmol/L (10-20); BUN (Urea Nitrogen) 24 mg/dL (8.4-25.7); Calc. Creatinine Clearance 47 mL/min (70-130); Calcium 10.7 mg/dL (7.8-10.44); Carbon Dioxide 29 mmol/L (23-31); Chloride 106 mmol/L (98-107); Estimated GFR-MDRD 44; Glucose 117 mg/dL (83-110); Potassium 3.4 mmol/L (3.5-5.1); Sodium 145 mmol/L (136-145)
[2018-09-04] MEDS: Polyethylene Glycol 3350 17 GM Packet PO SCH ×2 (08:37→20:10)
[2018-09-04] MEDS: Famotidine 20 MG TAB PO SCH ×2 (08:38→20:30)
[2018-09-04] MEDS: Docusate 100 MG CAP PO SCH ×2 (08:38→20:30)
[2018-09-04] MEDS: NIFEdipine XL 30 MG TAB PO SCH (08:38)
[2018-09-04] MEDS: Enoxaparin Sodium 40 MG/0.4 ML SYRINGE SC SCH (08:39)
--- NOTE | 2018-09-04 10:34 | PDOC.PN ---
- Subjective Encounter Start Date: 09/04/18 Encounter Start Time: 10:32 Subjective: had a better night last night.able to sleep through -: remains confused per family - Objective Resuscitation Status - Order Detail: 09/01/18 19:24 Resuscitation Status Routine Resuscitation Status: FULL: Full Resuscitation Discussed with: discussed w pt HILARIO Reviewed: Yes Vital Signs & Weight: Vital Signs (12 hours) Temp Pulse Resp BP BP Pulse Ox 09/04/18 08:38 98 151/78 H 09/04/18 07:31 98.3 F 86 16 151/78 H 100 09/04/18 04:36 98.3 F 79 22 H 147/74 H 100 09/04/18 00:58 98.4 F Weight Weight 190 lb I&O: 09/03/18 09/04/18 09/05/18 06:59 06:59 06:59 Intake Total 1800 960 Output Total 450 1326 Balance 1350 -366 Result Diagrams: 09/03/18 08:23 09/04/18 04:28 Additional Labs: Laboratory Tests 09/01/18 09/02/18 09/02/18 15:19 04:44 04:44 Hgb 8.4 L Calcium 14.6 H* 12.9 H* 09/03/18 09/03/18 09/04/18 08:23 08:23 04:28 Hgb 8.1 L Calcium 11.6 H 10.7 H Phys Exam - Physical Examination Constitutional: NAD pale.confused.talks about WW2 HEENT: PERRLA, moist MMs, sclera anicteric, oral pharynx no lesions Neck: no nodes, no JVD, supple, full ROM Respiratory: no wheezing, no rales, no rhonchi, clear to auscultation bilateral Cardiovascular: RRR, no significant murmur, no rub Gastrointestinal: soft, non-tender, no distention, positive bowel sounds Musculoskeletal: no edema, pulses present Neurological: non-focal, normal sensation, moves all 4 limbs Psychiatric: normal affect Skin: no rash Dx/Plan (1) Hypercalcemia Code(s): E83.52 - HYPERCALCEMIA Status: Acute (2) HILTON (acute kidney injury) Code(s): N17.9 - ACUTE KIDNEY FAILURE, UNSPECIFIED Status: Acute (3) Intractable pain Code(s): R52 - PAIN, UNSPECIFIED Status: Acute (4) Normochromic normocytic anemia Code(s): D64.9 - ANEMIA, UNSPECIFIED Status: Acute (5) 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 IVF stopped d/t OL.monitor -: encourgraed PO fluid intake.recheck in am -: Stop decadron. -: jeremy Munoz home if stable and Ca continues to get better * .low grade feevr-will check blood Cx.monitor * ECHO pending Review of Systems - Review of Systems Constitutional: negative: fever, chills, sweats, weakness, malaise, other ENT: negative: Ear Pain, Ear Discharge, Nose Pain, Nose Discharge, Nose Congestion, Mouth Pain, Mouth Swelling, Throat Pain, Throat Swelling, Other Respiratory: negative: Cough, Dry, Shortness of Breath, Hemoptysis, SOB with Excertion, Pleuritic Pain, Sputum, Wheezing Cardiovascular: negative: chest pain, palpitations, orthopnea, paroxysmal nocturnal dyspnea, edema, light headedness, other Gastrointestinal: negative: Nausea, Vomiting, Abdominal Pain, Diarrhea, Constipation, Melena, Hematochezia, Other Genitourinary: negative: Dysuria, Frequency, Incontinence, Hematuria, Retention , Other Musculoskeletal: negative: Neck Pain, Shoulder Pain, Arm Pain, Back Pain, Hand Pain, Leg Pain, Foot Pain, Other Neurological: negative: Weakness, Numbness, Incoordination, Change in Speech, Confusion, Seizures, Other - Medications/Allergies Allergies/Adverse Reactions: Allergies Allergy/AdvReac Type Severity Reaction Status Date / Time Penicillins Allergy Verified 05/27/16 19:24 Medications: Current Medications Acetaminophen (Tylenol) 650 mg PO Q4H PRN PRN Reason: Headache/Fever/Mild Pain (1-3) Last Admin: 09/03/18 20:36 Dose: 650 mg Hydrocodone Bitart/Acetaminophen ([place] 10/325) 0.5 tab PO Q8H PRN PRN Reason: Severe Pain (7-10) Last Admin: 09/03/18 03:16 Dose: 0.5 tab Amitriptyline HCl (Elavil) 100 mg PO [facility] Last Admin: 09/03/18 20:34 Dose: 100 mg Atorvastatin Calcium (Lipitor) 10 mg PO HS [facility] Last Admin: 09/03/18 20:34 Dose: 10 mg Benzonatate (Tessalon) 100 mg PO Q6H PRN PRN Reason: Cough Bisacodyl (Dulcolax) 10 mg PO DAILYPRN PRN PRN Reason: Constipation Bisacodyl (Dulcolax) 10 mg [place] DAILYPRN PRN PRN Reason: Constipation Calcium Carbonate (Tums) 1,000 mg PO Q4H PRN PRN Reason: Heartburn or Indigestion Clonidine (Catapres) 0.1 mg PO Q4H PRN PRN Reason: SBP > 160____ Docusate Sodium (Colace) 100 mg PO BID [facility] Last Admin: 09/04/18 08:38 Dose: 100 mg Enoxaparin Sodium (Lovenox) 40 mg SC 0900 [facility] Last Admin: 09/04/18 08:39 Dose: Not Given Famotidine (Pepcid) 20 mg PO BID [facility] Last Admin: 09/04/18 08:38 Dose: 20 mg Guaifenesin (Robitussin Sf) 200 mg PO Q4H PRN PRN Reason: Cough Hydralazine HCl (Apresoline) 10 mg SLOW IVP Q4H PRN PRN Reason: SBP > 180 and HR < 70 Dexamethasone Sodium Phosphate (30 mg/ Sodium Chloride) 53 mls @ 92.174 mls/hr IVPB Q24HR [facility] Stop: 09/05/18 14:01 Last Admin: 09/03/18 14:38 Dose: 53 mls Morphine Sulfate (Morphine) 2 mg SLOW IVP Q4H PRN PRN Reason: breakthrough pain Last Admin: 09/03/18 21:35 Dose: 2 mg Nifedipine (Procardia Xl) 30 mg PO DAILY [facility] Last Admin: 09/04/18 08:38 Dose: 30 mg Nitroglycerin (Nitrostat) 0.4 mg SL Q5MIN PRN PRN Reason: Chest Pain Ondansetron HCl (Zofran Odt) 4 mg PO Q6H PRN PRN Reason: Nausea/Vomiting Ondansetron HCl (Zofran) 4 mg IVP Q6H PRN PRN Reason: Nausea/Vomiting Polyethylene Glycol (Miralax) 17 gm PO Q12HR [facility] Last Admin: 09/04/18 08:37 Dose: 17 gm Senna/Docusate Sodium (Senokot S) 2 tab PO BID PRN PRN Reason: Constipation Sodium Chloride ([place] Nasal [place] 0.65%) 0 ml EA NARE QIDPRN PRN PRN Reason: Nasal Congestion Sodium Chloride (Flush - Normal Saline) 10 ml IVF PRN PRN PRN Reason: Saline Flush Tramadol HCl (Ultram) 50 mg PO Q4H PRN PRN Reason: Pain 4-6 Last Admin: 09/02/18 02:40 Dose: 50 mg
[2018-09-04] MEDS: Amitriptyline HCl 100 MG TAB PO SCH (20:29)
[2018-09-04] MEDS: HYDROcodone/Acetaminophen 10/325 mg Tablet PO PRN (20:30)
[2018-09-04] MEDS: Atorvastatin Calcium 10 MG TAB PO SCH (20:30)
[2018-09-04] MEDS: Morphine 2 MG/ML SYRINGE SLOW IVP PRN (23:22)
[2018-09-05 06:55] LABS: Anion Gap 10 mmol/L (10-20); BUN (Urea Nitrogen) 23 mg/dL (8.4-25.7); Calc. Creatinine Clearance 48 mL/min (70-130); Calcium 9.7 mg/dL (7.8-10.44); Carbon Dioxide 30 mmol/L (23-31); Chloride 105 mmol/L (98-107); Estimated GFR-MDRD 45; Glucose 96 mg/dL (83-110); Potassium 3.2 mmol/L (3.5-5.1); Sodium 142 mmol/L (136-145)
[2018-09-05] MEDS: Polyethylene Glycol 3350 17 GM Packet PO SCH (07:47)
[2018-09-05] MEDS: Famotidine 20 MG TAB PO SCH (07:49)
[2018-09-05] MEDS: Docusate 100 MG CAP PO SCH (07:49)
[2018-09-05] MEDS: NIFEdipine XL 30 MG TAB PO SCH (07:50)
[2018-09-05] MEDS ORDERED: Potassium Chloride 20 MEQ TAB PO SCH (09:00)
--- NOTE | 2018-09-05 11:15 | PDOC.PN ---
- Subjective Encounter Start Date: 09/05/18 Encounter Start Time: 11:15 Subjective: no new complaints.no overnigt events - Objective Resuscitation Status - Order Detail: 09/01/18 19:24 Resuscitation Status Routine Resuscitation Status: FULL: Full Resuscitation Discussed with: discussed w pt HILARIO Reviewed: Yes Vital Signs & Weight: Vital Signs (12 hours) Temp Pulse Resp BP BP Pulse Ox 09/05/18 08:19 98.7 F 101 H 18 121/67 100 09/05/18 07:50 95 126/69 Weight Weight 190 lb I&O: 09/04/18 09/05/18 09/06/18 06:59 06:59 06:59 Intake Total 960 115 Output Total 1326 1100 Balance -366 -985 Result Diagrams: 09/03/18 08:23 09/05/18 05:27 Additional Labs: Microbiology 09/04/18 08:52 Venous blood - Right Hand Blood Culture - Preliminary Specimen has been received and culture in progress. No Growth to date. 09/04/18 08:45 Venous blood - Left Hand Blood Culture - Preliminary Specimen has been received and culture in progress. No Growth to date. Laboratory Tests 06/08/18 06/15/18 09/01/18 19:56 16:07 15:19 Creatinine 1.38 H 1.43 H 1.66 H 09/02/18 09/03/18 09/04/18 04:44 08:23 04:28 Creatinine 1.50 H 1.52 H 1.52 H 09/05/18 05:27 Creatinine 1.49 H Phys Exam - Physical Examination Constitutional: NAD HEENT: PERRLA, moist MMs, sclera anicteric, oral pharynx no lesions Neck: no nodes, no JVD, supple, full ROM Respiratory: no wheezing, clear to auscultation bilateral Cardiovascular: RRR, no significant murmur Gastrointestinal: soft, non-tender, no distention, positive bowel sounds Musculoskeletal: no edema, pulses present Neurological: moves all 4 limbs Dx/Plan (1) Hypercalcemia Code(s): E83.52 - HYPERCALCEMIA Status: Acute (2) HILTON (acute kidney injury) Code(s): N17.9 - ACUTE KIDNEY FAILURE, UNSPECIFIED Status: Acute (3) Intractable pain Code(s): R52 - PAIN, UNSPECIFIED Status: Acute (4) Normochromic normocytic anemia Code(s): D64.9 - ANEMIA, UNSPECIFIED Status: Acute (5) 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 Review of Systems - Medications/Allergies Allergies/Adverse Reactions: Allergies Allergy/AdvReac Type Severity Reaction Status Date / Time Penicillins Allergy Verified 05/27/16 19:24 Medications: Current Medications Acetaminophen (Tylenol) 650 mg PO Q4H PRN PRN Reason: Headache/Fever/Mild Pain (1-3) Last Admin: 09/03/18 20:36 Dose: 650 mg Hydrocodone Bitart/Acetaminophen ([place] 10/325) 0.5 tab PO Q8H PRN PRN Reason: Severe Pain (7-10) Last Admin: 09/04/18 20:30 Dose: 0.5 tab Amitriptyline HCl (Elavil) 100 mg PO HS [facility] Last Admin: 09/04/18 20:29 Dose: 100 mg Atorvastatin Calcium (Lipitor) 10 mg PO HS [facility] Last Admin: 09/04/18 20:30 Dose: 10 mg Benzonatate (Tessalon) 100 mg PO Q6H PRN PRN Reason: Cough Bisacodyl (Dulcolax) 10 mg PO DAILYPRN PRN PRN Reason: Constipation Bisacodyl (Dulcolax) 10 mg [place] DAILYPRN PRN PRN Reason: Constipation Calcium Carbonate (Tums) 1,000 mg PO Q4H PRN PRN Reason: Heartburn or Indigestion Clonidine (Catapres) 0.1 mg PO Q4H PRN PRN Reason: SBP > 160____ Docusate Sodium (Colace) 100 mg PO BID [facility] Last Admin: 09/05/18 07:49 Dose: 100 mg Enoxaparin Sodium (Lovenox) 40 mg SC 0900 [facility] Last Admin: 09/04/18 08:39 Dose: Not Given Famotidine (Pepcid) 20 mg PO BID [facility] Last Admin: 09/05/18 07:49 Dose: 20 mg Guaifenesin (Robitussin Sf) 200 mg PO Q4H PRN PRN Reason: Cough Hydralazine HCl (Apresoline) 10 mg SLOW IVP Q4H PRN PRN Reason: SBP > 180 and HR < 70 Morphine Sulfate (Morphine) 2 mg SLOW IVP Q4H PRN PRN Reason: breakthrough pain Last Admin: 09/04/18 23:22 Dose: 2 mg Nifedipine (Procardia Xl) 30 mg PO DAILY [facility] Last Admin: 09/05/18 07:50 Dose: 30 mg Nitroglycerin (Nitrostat) 0.4 mg SL Q5MIN PRN PRN Reason: Chest Pain Ondansetron HCl (Zofran Odt) 4 mg PO Q6H PRN PRN Reason: Nausea/Vomiting Ondansetron HCl (Zofran) 4 mg IVP Q6H PRN PRN Reason: Nausea/Vomiting Polyethylene Glycol (Miralax) 17 gm PO Q12HR [facility] Last Admin: 09/05/18 07:47 Dose: 17 gm Senna/Docusate Sodium (Senokot S) 2 tab PO BID PRN PRN Reason: Constipation Sodium Chloride ([place] Nasal [place] 0.65%) 0 ml EA NARE QIDPRN PRN PRN Reason: Nasal Congestion Sodium Chloride (Flush - Normal Saline) 10 ml IVF PRN PRN PRN Reason: Saline Flush Tramadol HCl (Ultram) 50 mg PO Q4H PRN PRN Reason: Pain 4-6 Last Admin: 09/02/18 02:40 Dose: 50 mg
[2018-09-05 11:17] VITALS: BP 137/70; TEMP 98.4
[2018-09-05] MEDS: Morphine 2 MG/ML SYRINGE SLOW IVP PRN ×2 (11:25→16:10)
[2018-09-05] MEDS: Enoxaparin Sodium 40 MG/0.4 ML SYRINGE SC SCH (12:13)
--- NOTE | 2018-09-06 02:35 | DIS ---
DATE OF ADMISSION: 09/01/2018 DATE OF DISCHARGE: 09/05/2018 CONDITION: At the time of discharge is stable and improved. DISCHARGE DIAGNOSES: 1. Hypercalcemia. 2. Acute renal insufficiency. 3. Normocytic normochromic anemia. 4. History of multiple myeloma with suspected relapse. 5. Bone pain. 6. 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 7. History of multiple myeloma. DISCHARGE MEDICATIONS: 1. Amitriptyline 100 mg daily. 2. MiraLAX as needed. 3. [place] as needed. 4. Duragesic patch, it was stopped while he was in the hospital. He will readdress this with his pain medication physician, Dr. Prescott, as the family thought that it was making him loopy. 5. Pravastatin 40 mg daily. New medication: Procardia XL 30 mg daily. Discontinued medication: Triamterene/hydrochlorothiazide and discontinued YEVGENIY inhibitor. PROCEDURES DONE IN THE HOSPITAL: 1. CT scan of the chest, abdomen, and pelvis, which shows extensive osteolytic lesions and sclerosis within the osteolytic lesions and the entire skeleton. 2. Osseous bone survey, which once again was consistent with the findings of lytic bone lesions throughout the visualized osseous structures. 3. Bone scan nuclear medicine which shows numerous foci of increased uptake representing areas of increased osteoblastic activity as well as some sclerosis which actually correspond to some of the sclerotic area demonstrated in the recent bone survey. It may represent healing changes in response to the myeloma lesions. 4. CT scan of the brain which is unremarkable. 5. Chest x-ray, which showed no acute pulmonary findings, very extensive multiple myeloma findings were seen. 6. Transthoracic echocardiogram, which shows preserved ejection fraction of 65% and no diastolic dysfunction or valvular dysfunction. CONSULTATIONS: 1. In-house Nephrology, Dr. Burdick. 2. Oncology, Dr. Romero and Dr. Stein. HISTORY OF PRESENTING ILLNESS: Mr. Hill is a very pleasant 78-year-old male with known history of multiple myeloma, in remission, who presented to the emergency room with complaints of generalized weakness, weight loss, bone pain, as a direct admit from Dr. Stein' office. He has these symptoms ongoing for about 3 months and was found to have slowly creeping up of calcium and on the day of presentation, his calcium was found to be as high as 14.6. He was also noticed to have acute renal insufficiency with a creatinine of 1.50 and hemoglobin of 8.4, which was at baseline of 13 a few months ago. Please see admission history and physical for further details. He was given Zometa in Dr. Stein' office and was admitted to medical floor. HOSPITAL COURSE: He was aggressively resuscitated with IV fluids and his calcium numbers improved significantly. Iron indices, B12, and folic acid were checked and were normal. His hemoglobin and his creatinine remained rather stable. Nephrology was consulted and Dr. Burdick saw the patient and agreed with the hydration. His calcium came back down to normal at 9.7. Oncology was consulted and with the suspicion of reoccurrence of myeloma with hypercalcemia, anemia, and renal failure, a bone survey and bone scan were done with the results mentioned above. A CT scan was also done with the results mentioned above. At this time, it is not clear if the bony lesions are from the myeloma or the new blastic lesions from the sclerosis and/or myeloma lesions. Nevertheless, he was treated with 4 days of Decadron while here. Dr. Stein and Dr. Romero have seen the patient. PSA has been sent for completion purposes. As of this morning, he is back to his baseline, which is kind of confused. He has chronic pain and multiple medications have been tried for him in the past by his pain medication doctor, Dr. Prescott. At this admission, fentanyl patch was stopped as per the request by his family members who feel that it is causing him to have significant confusion. Home health was arranged for this patient and he was cleared for discharge by Oncology and was discharged home in a stable condition. He will follow up with Dr. Stein in few days. Please see hospitalist progress note from today's date for further details, including [id number] interaction. Total time spent in the discharge of this patient, 35 minutes. Job ID: [id number]
[2018-09-07 07:28] LABS: % Free PSA 16.3 % (.); Total PSA 0.8 ng/mL (0.0-4.0)
== END 2018-09-05 17:01 | disposition home or self-care (01) | DRG 841 ==
LOC: T4-A 17:16
PROVIDERS: ADMIT Internal Medicine; ATTEND Internal Medicine
DX: C90.00 Multiple myeloma not having achieved remission (principal); N17.9 Acute kidney failure, unspecified; E83.52 Hypercalcemia; I12.9 Hypertensive chronic kidney disease with stage 1 through stage 4 chronic kidney disease, or unspecified chronic kidney disease; N18.9 Chronic kidney disease, unspecified; D64.9 Anemia, unspecified; G62.9 Polyneuropathy, unspecified; R63.4 Abnormal weight loss; M19.90 Unspecified osteoarthritis, unspecified site; G89.29 Other chronic pain; E78.5 Hyperlipidemia, unspecified; Z88.0 Allergy status to penicillin
CPT/HCPCS: 36415; 70470; 71045; 71250; 74177; 77075; 78306; 80048; 80053; 81001; 82248; 82607; 82746; 83540; 83550; 83615; 83735; 83970; 84100; 84153; 84154; 84165; 84550; 85025; 87040; 93306; A9503; G8978-GP-CL; G8979-GP-CJ; G8987-GO-CL; G8988-GO-CI; J1100; J1200; J1650; J1940; J2060; J2270; J3486; J7050

== ENCOUNTER 2018-09-24 10:41 | Day surgery (SDC) | payer MEDICARE ==
[2018-09-24] MEDS ORDERED: diphenhydrAMINE 25 MG CAP PO SCH (11:45)
[2018-09-24] MEDS ORDERED: Acetaminophen 500 MG TAB PO SCH (11:45)
[2018-09-24 16:12] LABS: #Eosinphils 0.1 thou/uL (0.0-0.7); #Lymphocytes 0.9 thou/uL (1.20-3.40); #Monocytes 0.3 thou/uL (0.11-0.59); #Neutrophils 3.3 thou/uL (1.40-6.50); %Basophils 0.3 % (0.0-1.0); %Eosinophils 1.5 % (0.0-10.0); %Lymphocytes 20.2 % (21.0-51.0); %Monocytes 5.9 % (0.0-10.0); %Neutrophils 72.1 % (42.0-75.0); Hemoglobin 8.1 g/dL (14.0-18.0); Mean Corpuscular HGB CONC 33.2 g/dL (32.0-36.0); Mean Corpuscular Hemoglobin 33.1 pg (27.0-31.0); Mean Platelet Volume 5.9 fL (7.4-10.4); Platelet Count 148 thou/uL (130-400); Red Blood Cell (RBC) Count 2.46 mill/uL (4.70-6.10); White Blood Cell (WBC) Count 4.6 thou/uL (4.8-10.8)
[2018-09-24 17:18] VITALS: BP 152/84; TEMP 98.8
== END 2018-09-24 16:56 | disposition home or self-care (01) ==
LOC: ONC/OP 10:41 → ONC 10:53 → ONC/OP 16:56
PROVIDERS: ATTEND Internal Medicine Hematology & Oncology
PROC: 30233N1 Transfusion of Nonautologous Red Blood Cells into Peripheral Vein, Percutaneous Approach (ICD-10-PCS; principal; 2018-09-24)
DX: D64.9 Anemia, unspecified (principal); D69.59 Other secondary thrombocytopenia
CPT/HCPCS: 36415; 36430; 85025; 86850; 86870; 86880; 86900; 86901; 86922; 86970; P9016

== ENCOUNTER 2018-12-15 14:44 | Inpatient (IN) | payer MEDICARE ==
[2018-12-15 15:24] LABS: #Eosinphils 0.1 thou/uL (0.0-0.7); #Lymphocytes 0.6 thou/uL (1.20-3.40); #Monocytes 0.4 thou/uL (0.11-0.59); #Neutrophils 4.9 thou/uL (1.40-6.50); %Eosinophils 1.4 % (0.0-10.0); %Monocytes 6.6 % (0.0-10.0); Mean Corpuscular HGB CONC 31.4 g/dL (32.0-36.0); Mean Corpuscular Hemoglobin 32.6 pg (27.0-31.0); Mean Platelet Volume 8.3 fL (7.4-10.4); Platelet Count 132 thou/uL (130-400); RBC Distribution Width 17.7 % (11.5-14.5); Red Blood Cell (RBC) Count 3.37 mill/uL (4.70-6.10)
[2018-12-15 15:38] LABS: ALT (SGPT) 322 U/L (8-55); AST (SGOT) 82 U/L (5-34); Albumin 3.7 g/dL (3.4-4.8); Alkaline Phosphatase 155 U/L (40-150); Anion Gap 13 mmol/L (10-20); BUN (Urea Nitrogen) 24 mg/dL (8.4-25.7); Bilirubin, Total 1.4 mg/dL (0.2-1.2); Calc. Creatinine Clearance 0 mL/min (70-130); Calcium 8.5 mg/dL (7.8-10.44); Carbon Dioxide 26 mmol/L (23-31); Chloride 95 mmol/L (98-107); Estimated GFR-MDRD 54; Glucose 222 mg/dL (83-110); Potassium 3.4 mmol/L (3.5-5.1); Protein, Total 5.7 g/dL (5.8-8.1); Sodium 131 mmol/L (136-145)
[2018-12-15 16:02] LABS: CKMB 3.5 ng/mL (0-6.6)
--- NOTE | 2018-12-15 16:16 | RAD ---
PORTABLE CHEST 1 VIEW: Date: 12/15/18 Time: 1508 hours HISTORY: Dyspnea. FINDINGS/IMPRESSION: Comparison made with exam of 09/03/18. The heart size is prominent. The lungs are hypoexpanded. No focal areas of consolidation, pneumothora maeve, maira pulmonary edema, or large effusions are seen. Lytic lesions consistent with multiple myelo ma are noted in the skeleton. POS: [facility]
[2018-12-15 17:53] LABS: HBCM Index 0.05 S/CO (0-0.79); HBSAg Index 0.27 S/CO (0-0.99); Hep A IgM AB Non-Reactive (NonReactive); Hep A IgM S/CO 0.24 S/CO (0-0.79); Hep B Surf Ag Non-Reactive S/CO (NonReactive); Hep C IgG Ab Non-Reactive (NonReactive); Hep C Index 0.03 S/CO (0-0.79); Hepatitis B Core IgM Abs Non-Reactive (NonReactive)
[2018-12-15 18:42] LABS: Troponin I 0.048 ng/mL (< 0.028)
[2018-12-15] MEDS ORDERED: Ondansetron PF 4 MG/2 ML Vial IVP PRN (21:10)
[2018-12-15] MEDS ORDERED: Zolpidem Tartrate 5 MG TAB PO PRN (21:10)
[2018-12-15] MEDS ORDERED: Lorazepam 0.5 MG TAB PO PRN (21:12)
[2018-12-15] MEDS ORDERED: Gabapentin 100 MG CAP PO PRN (21:21)
[2018-12-15] MEDS ORDERED: Dextrose 50% Abboject 50 ML SYRINGE SLOW IVP PRN (21:26)
[2018-12-15] MEDS ORDERED: HumaLOG 300 UNITS/3 ML VIAL SC PRN ×2 (21:26)
[2018-12-15] MEDS ORDERED: Dextrose 5% in Water 1,000 ML IV PRN (21:26)
[2018-12-15 21:29] LABS: Troponin I 0.057 ng/mL (< 0.028)
--- NOTE | 2018-12-15 22:28 | HP ---
ADMITTING DIAGNOSES: Abdominal swelling, lower extremity swelling. HISTORY OF PRESENT ILLNESS: This is an 78-year-old male who is being seen in the ER because of abdominal swelling and lower extremity swelling. The patient apparently was started on Lasix outpatient, however, this did not help his symptoms and he continued to have lower extremity swelling as well as abdominal swelling. The patient was seen in the ER, was found to have ascites with scheduled paracentesis to be done for tomorrow morning. The patient stated that he was having some pain issues as well. The patient had blood pressure with systolic in the 90s. Fluid boluses did not help raise the blood pressure in the ER. The patient otherwise denies any other associated symptoms or complaints. No alleviating or aggravating factors noted. The patient states that this is the first time he has noted his abdomen swelling, but he has had a history of lower extremity swelling. The patient is seen and examined in the ER. at bedside. All questions answered. ALLERGIES: TO PENICILLIN, STATES THAT HE GETS A RASH WHEN HE GETS THAT. PAST MEDICAL HISTORY: Multiple myeloma, hypertension. SOCIAL HISTORY: Denies any smoking or drinking. FAMILY HISTORY: Hypertension. REVIEW OF SYSTEMS: All systems reviewed. Pertinent positives in HPI, otherwise negative. PHYSICAL EXAMINATION: VITAL SIGNS: Blood pressure 91/75, heart rate of 102, respiratory rate of 16, temperature of 97.8, and O2 saturations 100% on room air. GENERAL: The patient is lying in bed comfortably. No acute distress. HEENT: Pupils are equal, round, and reactive to light and accommodation. Oral cavity moist and pink. Extraocular muscles intact. RESPIRATORY: Clear to auscultation bilaterally. No increase in AP diameter. No respiratory distress. CARDIOVASCULAR: S1, S2. No murmurs, rubs, or gallops appreciated. Regular rate and rhythm. ABDOMEN: Positive fluid wave. Rotund, slightly distended. Positive bowel sounds. Soft, nontender. EXTREMITIES: 2+ peripheral pulses bilaterally, 2+ pitting edema in lower extremities. No loss of motor or sensory function. NEUROLOGICAL: Cranial nerves 2 through 12 intact. Alert and oriented x3. LABORATORY DATA: CBC within normal limits, albeit for hemoglobin of 11. Basic metabolic panel relatively normal except for sodium 131, potassium 3.4, creatinine 1.3, glucose of 222. Troponin first rate 0.043, second rate 0.048. Brain natriuretic peptide of 1109. Hepatitis panel nonreactive. Abdominal ultrasound pending. ASSESSMENT: 1. Ascites. 2. Hypervolemic state, likely secondary to renal injury. Echo done recently was normal and liver function is normal. 3. Diabetes. 4. Hypertension. 5. History of multiple myeloma diagnosed in 1998, with potential concern for myeloma kidney. 6. Abdominal pain. PLAN: 1. At this point in time, we will admit the patient to Internal Medicine Team. Consult to Oncology as was Nephrology. Will discontinue IV fluids. Start the patient on midodrine. Prior creatinine show peak of 2.5. The patient's baseline creatinine likely is in the 2 to 2.2 region as the patient is overtly swallowing and might have a dilutional effect on the creatinine in this lab draw. 2. Abdominal ultrasound pending. Plan for paracentesis tomorrow. Troponin leak likely secondary to reduced clearance. The patient has not seen a phone manager in the past, has only been following a primary as well as an oncologist, and has been having a diagnosis of multiple myeloma for about 20 years at this point in time, so very reasonable that concern for multiple myeloma kidney could be present. We will obtain urinalysis to check for protein and then continue further workup at that point in time. We will also obtain retroperitoneal ultrasounds while the patient is here. The patient wishes to remain a full code. Case and plan discussed with the patient and at length. They understand and agree with this plan. Job ID: [id number]
[2018-12-15] MEDS: Morphine 10 MG/0.5 ML ORAL SYRINGE SL PRN (23:40)
[2018-12-16 02:10] LABS: Creatinine, Urine 48.37 mg/dL (63-166)
--- NOTE | 2018-12-16 05:23 | CON ---
DATE OF CONSULTATION: 12/15/2018 CONSULTING PHYSICIAN: Wilian Iraheta DO REASON FOR CONSULTATION: Acute kidney injury edema. REASON FOR ADMISSION: Shortness of breath. HISTORY OF PRESENT ILLNESS: An 78-year-old male with history of multiple myeloma, hyperlipidemia, hypertension, and also with worsening swelling and shortness of breath. The patient has had history of multiple myeloma and follows with Dr. Stein and Nephrology is consulted for volume management and monitoring of renal function with diuresis. The patient complains of swelling for the last few days and also low appetite. No chest pain or palpitations. PAST MEDICAL HISTORY: Positive for multiple myeloma, hypertension, and hyperlipidemia. PAST SURGICAL HISTORY: Achilles tendon repair, left arm surgery, and appendectomy. MEDICATIONS: Reviewed. ALLERGIES: PENICILLIN. SOCIAL HISTORY: No smoking, alcohol, or drug abuse. FAMILY HISTORY: No history of any kidney disease. REVIEW OF SYSTEMS: CONSTITUTIONAL: Negative for weight loss or gain, ability to conduct usual activities. SKIN: Negative for rash, itching. EYES: Negative for double vision, pain. ENT/MOUTH: Negative for nose bleeding, neck stiffness, pain, tenderness. CARDIOVASCULAR: Negative for palpitations, dyspnea on exertion, orthopnea. RESPIRATORY: Negative for shortness of breath, wheezing, cough, hemoptysis, fever or night sweats. GASTROINTESTINAL: Negative for poor appetite, abdominal pain, heartburn, nausea, vomiting, constipation, or diarrhea. GENITOURINARY: Negative for urgency, frequency, dysuria, nocturia. MUSCULOSKELETAL: Negative for pain, swelling. NEUROLOGIC/PSYCHIATRIC: Negative for anxiety, depression. ALLERGY/IMMUNOLOGIC: Negative for skin rash, bleeding tendency. PHYSICAL EXAMINATION: GENERAL: Well-built male, in no apparent distress. VITAL SIGNS: Temperature 97.8, pulse 141, respiratory rate 16, and blood pressure 139/82. HEENT: Atraumatic and normocephalic. Oral mucosa is moist. NECK: Supple. CVS: S1 and S2 heard. Regular rate and rhythm. RESPIRATORY: Clear. GASTROINTESTINAL: Abdomen is obese, distended. MUSCULOSKELETAL: 1+ edema. DERMATOLOGIC: No skin rash. NEUROLOGIC: Alert and awake. PSYCHIATRIC: Normal mood and affect. LABORATORY DATA: Hemoglobin is 11.0, potassium 3.4, BUN is 34, creatinine is 1.3. ASSESSMENT AND PLAN: 1. Acute kidney injury. We will monitor. 2. Anasarca with edema. I agree with diuresis corresponding to renal function. 3. Hypertension. 4. Multiple myeloma. We will monitor. We will check urine protein to creatinine ratio. 5. Hypokalemia, replace aggressively. 6. Hyponatremia. 7. Elevated liver enzymes. 8. Elevated BNP. 9. Mild hypoalbuminemia. Prognosis is guarded. We will follow. Dialysis as tolerated. Job ID: [id number]
[2018-12-16 06:50] LABS: Anion Gap 12 mmol/L (10-20); BUN (Urea Nitrogen) 18 mg/dL (8.4-25.7); Calc. Creatinine Clearance 77 mL/min (70-130); Carbon Dioxide 26 mmol/L (23-31); Chloride 96 mmol/L (98-107); Estimated GFR-MDRD 71; Glucose 131 mg/dL (83-110); Sodium 131 mmol/L (136-145)
[2018-12-16 06:55] LABS: Potassium 2.6 mmol/L (3.5-5.1)
--- NOTE | 2018-12-16 07:04 | ULT ---
COMPLETE ABDOMEN ULTRASOUND: URINARY BLADDER ULTRASOUND: INDICATIONS: Ascites. Transaminitis. Clinical concern for myelomatous involvement of the genitourinary system. TECHNIQUE: Escobar-scale ultrasound evaluation of the liver, gallbladder, spleen, pancreas, common bile duct, kidne ys, abdominal aorta, and inferior vena cava (IVC). FINDINGS: The retroperitoneal structures are partially obscured, limiting assessment of the abdominal aorta and pancreas. There is no focal hepatic or splenic lesion. Ascites is seen within the abdomen. The gallbladder is moderately distended, although no shadowing cholelithiasis. The gallbladder wall is borderline, hunter roximating 3 mm. Ramirez sign is reported as negative by the director of rehabilitative services. The common duct is within normal limits, measuring 4 mm. Hypoechoic focus of the left kidney, slightly greater than 2 cm in di ameter, indicates a cyst. No hydronephrosis of either kidney. Evaluation of the bladder reveals subtle increased echogenicity of the bladder lumen. The possibilit y of an indwelling bladder mass is not excluded. Incidental note of decreased echogenicity adjacent the liver, indicative of a right pleural effusion. Left pleural fluid also suggested. Recorded blad marcia volume is 359 mL. IMPRESSION: 1. Abdominal ascites and pleural fluid. 2. Gallbladder distention with a borderline gallbladder wall. Correlate clinically. 3. The possibility of a bladder mass is not excluded on the basis of this examination. Recommend co ntinued followup in this regard. POS: [place]
[2018-12-16 07:24] LABS: #Eosinphils 0.3 thou/uL (0.0-0.7); #Lymphocytes 0.6 thou/uL (1.20-3.40); #Monocytes 0.6 thou/uL (0.11-0.59); #Neutrophils 4.4 thou/uL (1.40-6.50); %Basophils 0.2 % (0.0-1.0); %Eosinophils 4.3 % (0.0-10.0); %Lymphocytes 10.8 % (21.0-51.0); %Monocytes 9.6 % (0.0-10.0); Anisocytosis SLIGHT = 6-15 cells (100X) (0-5/hpf); Hemoglobin 9.5 g/dL (14.0-18.0); Hypochromia SLIGHT = 6-15 cells (100X) (0-5/hpf); MDiff Complete? YES; Mean Corpuscular HGB CONC 30.4 g/dL (32.0-36.0); Mean Corpuscular Hemoglobin 31.3 pg (27.0-31.0); Mean Platelet Volume 8.1 fL (7.4-10.4); Platelet Count 113 thou/uL (130-400); Platelet Morphology Comment Appears Decreased; Polychromasia SLIGHT = 2-3 cells (100X) (0-2/hpf); Red Blood Cell (RBC) Count 3.02 mill/uL (4.70-6.10); Schistocytes SLIGHT = 2-5 cells (100X) (0-1/hpf); White Blood Cell (WBC) Count 5.8 thou/uL (4.8-10.8)
[2018-12-16] MEDS: Morphine 10 MG/0.5 ML ORAL SYRINGE SL PRN (09:54)
[2018-12-16] MEDS: Midodrine HCl 5 MG TAB PO SCH ×3 (09:55→20:43)
[2018-12-16] MEDS: Heparin 5,000 UNITS/ML VIAL SC SCH ×2 (09:55→20:48)
[2018-12-16] MEDS ORDERED: Polyethylene Glycol 3350 17 GM Packet PO PRN (11:31)
--- NOTE | 2018-12-16 12:28 | CON ---
DATE OF CONSULTATION: REASON FOR CONSULT: Multiple myeloma. HISTORY OF PRESENT ILLNESS: Mr. Hill is a pleasant 78-year-old gentleman who was diagnosed with multiple myeloma in 2017. He was recently started on Darzalex and dexamethasone in August of 2018. Over the past 2 weeks, he has had a general decline in overall status. On December 08, he came in for his treatment. He had elevated creatinine and elevated transaminases with an AST of 1335, ALT of 1015 , and bilirubin of 1.0. He was treated that day and started on gentle diuresis. When he returned one week later, his transaminases were improved. However, he had anasarca and fatigue. He appeared to be in heart failure. He was admitted to this facility for further evaluation. PAST MEDICAL HISTORY: 1. IgG multiple myeloma, currently on Darzalex. 2. Skeletal lytic lesions. 3. High cholesterol. 4. History of hepatitis A. 5. Hypertension. 6. Osteoarthritis. PAST SURGICAL HISTORY: 1. Appendectomy. 2. Tendon repair. ALLERGIES: TO PENICILLIN. HOME MEDICATIONS: 1. Amitriptyline 100 mg at bedtime. 2. Amlodipine 2.5 mg daily. 3. Aspirin 81 mg daily. 4. MS Contin 15 mg b.i.d. 5. Pravastatin 40 mg daily. 6. Triamterene and hydrochlorothiazide daily. FAMILY HISTORY: Family history of breast and stomach cancer. SOCIAL HISTORY: , lives with his spouse. No alcohol, tobacco, or illicit drug use. REVIEW OF SYSTEMS: CONSTITUTIONAL: No fever, chills, or night sweats. Positive for fatigue. EYES: No blurred or double vision. ENT: No pain, hoarseness, sore throat, or dysphagia. CV: No chest pain. Occasional palpitations and syncope. RESPIRATORY: Positive for shortness of breath and dyspnea on exertion. GI: No nausea, vomiting, diarrhea, constipation, or abdominal pain. : No dysuria or hematuria. MUSCULOSKELETAL: Positive for joint and back pain. SKIN: No rash or pruritus. HEMATOLOGICAL: No bruising or bleeding. NEUROLOGICAL: Positive for numbness and tingling in his feet. PHYSICAL EXAMINATION: VITAL SIGNS: Temperature is 97.7, pulse is 112, respiratory rate 16, BP is 137/ 67. He is 98% on room air. GENERAL: This is a chronically ill-appearing male, in no acute distress. HEENT: Normocephalic, atraumatic. Pupils are equal and reactive to light. NECK: Supple. CV: Irregular rate and rhythm. He has murmur. LUNGS: Diminished throughout. ABDOMEN: Distended. Bowel sounds are positive. EXTREMITIES: 2+ bilateral lower extremity edema. SKIN: No rash. HEMATOLOGICAL: No petechiae or purpura. NEUROLOGICAL: Nonfocal. PSYCH: The patient is alert, oriented, and appropriate. PERTINENT LABS AND X-RAYS: Current WBCs 5.8, hemoglobin 9.5, hematocrit 31.1, platelet count is 113,000, 75% neutrophils, 10% lymphocytes. Sodium is 131, potassium 2.6, chloride 96, CO2 is 26, BUN is 18, creatinine 1.01, bilirubin is 1.4, AST is 82, ALT is 322, alkaline phosphatase is 155. CK-MB is 3.5, troponin is 0.057. BNP is 1109. Serum total protein 5.7, albumin 3.7, globulin 2.0. Bladder and abdominal ultrasound show ascites and pleural fluid. ASSESSMENT: 1. IgG multiple myeloma. 2. New onset anasarca. 3. Elevated transaminases. DISCUSSION: The patient has been started on gentle diuresis. Nephrology has been consulted and has seen the patient. We will have Cardiology to evaluate Mr. Hill given his slight bump in troponin and elevated BNP. Case was discussed with Dr. Stein. The patient has been on Darzalex for several months. There is no data suggesting that Darzalex can cause anasarca and congestive heart failure. I will resume his pain medication and his amitriptyline. We will follow along with his hospital course. Job ID: [id number] [facility]
[2018-12-16 12:49] LABS: INR-International Normal Ratio 1.3; PTT 29.2 SEC (22.9-36.1); Prothrombin Time 16.3 SEC (12.0-14.7)
--- NOTE | 2018-12-16 13:01 | PDOC.PN ---
- Subjective Encounter Start Date: 12/16/18 Encounter Start Time: 12:59 Subjective: Admitted due to worsening weakness and swelling associated with acute AMS. -: Mental status is back to baseline. BP has improved with midodrine. -: Has severe peripherail neuropathy. Started on Darlex for multiple myeloma. - Objective Vital Signs & Weight: Vital Signs (12 hours) Temp Pulse Resp BP Pulse Ox 12/16/18 03:10 97.7 F 112 H 16 137/67 98 Weight Admit Weight 206 lb 14.4 oz Weight 206 lb 14.4 oz I&O: 12/15/18 12/16/18 12/17/18 06:59 06:59 06:59 Intake Total 120 Output Total 700 Balance -580 Result Diagrams: 12/16/18 06:02 12/16/18 06:02 Additional Labs: Accuchecks 12/16/18 12/16/18 10:36 05:02 POC Glucose 130 H 147 H Phys Exam - Physical Examination HEENT: PERRLA, moist MMs Neck: no JVD, supple Fair air entry. decreased air movement both bases Cardiovascular: irregular systolic murmur noted. full, soft and non tender moderate bilateral leg swelling Neurological: moves all 4 limbs decreased sensation both feet Psychiatric: A&O x 3 Deviation from normal: sacral decubitu ulcer noted Dx/Plan (1) Anasarca Code(s): R60.1 - GENERALIZED EDEMA Status: Acute (2) Pleural effusion Code(s): J90 - PLEURAL EFFUSION, NOT ELSEWHERE CLASSIFIED Status: Acute (3) Ascites Code(s): R18.8 - OTHER ASCITES Status: Acute Comment: Not amenable to drainage. (4) Acute anoxic encephalopathy Code(s): G93.1 - ANOXIC BRAIN DAMAGE, NOT ELSEWHERE CLASSIFIED Status: Acute (5) Acute metabolic encephalopathy Code(s): G93.41 - METABOLIC ENCEPHALOPATHY Status: Acute Comment: Resolved. Most likely due to hypotension. (6) CKD (chronic kidney disease) stage 3, GFR 30-59 ml/min Code(s): N18.3 - CHRONIC KIDNEY DISEASE, STAGE 3 (MODERATE) Status: Acute (7) Hypokalemia Code(s): E87.6 - HYPOKALEMIA Status: Acute (8) Diabetes mellitus Code(s): E11.9 - TYPE 2 DIABETES MELLITUS WITHOUT COMPLICATIONS Status: Acute (9) Physical deconditioning Code(s): R53.81 - OTHER MALAISE Status: Acute (10) Peripheral neuropathic pain Code(s): M79.2 - NEURALGIA AND NEURITIS, UNSPECIFIED Status: Acute (11) Hypotension Status: Acute (12) Heart murmur Code(s): R01.1 - CARDIAC MURMUR, UNSPECIFIED Status: Acute (13) Multiple myeloma Code(s): C90.00 - MULTIPLE MYELOMA NOT HAVING ACHIEVED REMISSION Status: Chronic - Plan Replete serum potassium. -: D/w interventional radiology. ascitis and pleural effusion are small. -: Start low dose spironolactone and lasix. -: Monitor vitals. -: Awaiting Echo. care plan discussed with patient and family. Consult Pt/ot * .
--- NOTE | 2018-12-16 13:12 | PRG ---
DATE OF SERVICE: 12/16/2018 SUBJECTIVE: Patient was seen and examined at bedside and overnight events noted. Patient denies any shortness of breath or chest pain or palpitation. No history of nausea or vomiting or diarrhea or fever or chills or cramps. OBJECTIVE: GENERAL: This is a well-built male, in no acute distress. VITAL SIGNS: Temperature 97.7, pulse 112, respiratory rate 16, blood pressure 137/67. HEENT: Atraumatic, normocephalic. Oral mucosa is moist NECK: Supple. CARDIOVASCULAR: S1, S2 heard. Rate and rhythm regular. RESPIRATORY: Clear to auscultation. GASTROINTESTINAL: Abdomen is soft. MUSCULOSKELETAL: No tenderness. No edema. DERMATOLOGIC: No skin rash. NEUROLOGIC: Alert and awake and oriented X3. No focal neurologic deficits. Moving all the extremities. PSYCHIATRIC: Mood and affect normal. LABORATORY DATA: Potassium is 2.6, BUN is 18, creatinine is 1.01. ASSESSMENT AND PLAN: 1. Acute kidney injury, stable. No sign of anasarca. Okay with diuresis with close monitoring. 2. Multiple myeloma. 3. Hypokalemia, replace. 4. Hyponatremia, limit fluid intake. 5. Proteinuria, most likely secondary to myeloma. 6. Okay with diuresis with close monitoring of renal function. Monitor blood pressure closely. Job ID: [id number]
[2018-12-16] MEDS ORDERED: Spironolactone 25 MG TAB PO SCH ×2 (13:15→21:00)
[2018-12-16] MEDS ORDERED: Furosemide 20 MG TAB PO SCH (13:15)
[2018-12-16] MEDS ORDERED: Polyethylene Glycol 3350 17 GM Packet PO SCH (13:45)
[2018-12-16] MEDS ORDERED: Bisacodyl 10 MG SUPP PR SCH (13:45)
[2018-12-16 14:32] LABS: ALT (SGPT) 238 U/L (8-55); AST (SGOT) 54 U/L (5-34); Albumin 3.2 g/dL (3.4-4.8); Alkaline Phosphatase 125 U/L (40-150); Bilirubin, Direct 0.8 mg/dL (0.1-0.3); Bilirubin, Total 1.2 mg/dL (0.2-1.2); Protein, Total 4.9 g/dL (5.8-8.1)
[2018-12-16] MEDS: Potassium Chloride 20 MEQ TAB PO SCH ×2 (15:26→20:43)
--- NOTE | 2018-12-16 18:41 | CON ---
DATE OF CONSULTATION: 12/16/2018 REASON FOR CONSULTATION: Evaluate for heart failure. HISTORY OF PRESENT ILLNESS: Mr. Hill is a pleasant 78-year-old white gentleman, who comes to the hospital for lower extremity edema and shortness of breath. He was admitted and diagnosed with what appeared to be volume overload. He had lower extremity edema much worse than baseline, ascites had developed, so he was admitted and started on p.o. Lasix. He has diuresed quite well and actually his edema is much better. He denies any chest pain, tightness, or pressure. He was short of breath when he was more edematous as when he would lay flat, he would feel the swelling get up into his lungs, but otherwise he would feel constantly he has to sleep in a recliner secondary to back issue that he has had before he had a broken vertebrae. Currently, he is laying actually upright about 15 degrees, much more comfortable, breathing is not an issue at that time. PAST MEDICAL HISTORY: 1. Multiple myeloma. IgG, on Darzalex. 2. Lytic lesions on bony structures. 3. Hyperlipidemia. 4. Hypertension. 5. Osteoarthritis. 6. History of hepatitis A. SURGICAL HISTORY: 1. Appendectomy. 2. Tendon repair. ALLERGIES: PENICILLIN. OUTPATIENT MEDICATIONS: Include, 1. Amitriptyline. 2. Amlodipine 2.5 mg a day. 3. Aspirin 81 a day. 4. MS Contin 15 mg b.i.d. for bony pain from multiple myeloma. 5. Pravastatin 40 mg a day. 6. Triamterene and hydrochlorothiazide. FAMILY HISTORY: Noncontributory. SOCIAL HISTORY: No alcohol, tobacco, or drugs. REVIEW OF SYSTEMS: A 12-point review of systems was done and was all negative unless stated in the history of present illness. PHYSICAL EXAMINATION: VITAL SIGNS: Temperature 97.5, pulse 118, respiratory rate 18, saturating 96% on room air, and blood pressure 111/69. GENERAL: Awake, alert, and oriented x3, in no distress. HEENT: Normocephalic and atraumatic. NECK: Supple. LUNGS: Clear. CARDIOVASCULAR: S1 and S2. No S3 or S4. Grade3/6 systolic murmur at right upper sternal border. ABDOMEN: Soft. Positive bowel sounds. EXTREMITIES: 2+ edema. SKIN: Warm and dry. LABORATORY DATA: Laboratory work was reviewed. CBC, coags, and chemistries were reviewed. Potassium is 2.6, needs to be replaced. LFTs are elevated, troponin is in the indeterminate range x3, and BNP was 1109. Bladder ultrasound was reviewed. Chest x-ray was reviewed. Abdominal ultrasound was reviewed showing ascites and pleural fluid, gallbladder distention. Bladder mass was not excluded. Most recent echocardiogram was done in August 2018 and showed an EF of 60% to 65%, with just trace TR. ASSESSMENT AND PLAN: 1. Right-sided failure. He has ascites and bilateral lower extremity edema. This would be consistent with an elevation of right-sided pressures. Echocardiogram is pending today. We will see what the right side shows. We have something to compare to back in August, his right side looks fairly normal. We will continue Lasix p.o. as fine as he is diuresing well. 2. Replace potassium. 3. Further recommendations per results of echo. Job ID: [id number] [facility]TD[facility]
[2018-12-16] MEDS: Morphine ER 15 MG TAB PO SCH (20:43)
[2018-12-16] MEDS: Amitriptyline HCl 100 MG TAB PO SCH (20:43)
[2018-12-16] MEDS: Furosemide 20 MG TAB PO SCH (20:45)
[2018-12-16] MEDS: Senokot S 8.6-50 MG TAB PO SCH (20:45)
[2018-12-16] MEDS: Polyethylene Glycol 3350 17 GM Packet PO SCH (20:45)
[2018-12-16] MEDS ORDERED: Docusate 100 MG CAP PO SCH (21:00)
[2018-12-17 05:46] LABS: #Eosinphils 0.3 thou/uL (0.0-0.7); #Lymphocytes 0.6 thou/uL (1.20-3.40); #Monocytes 0.5 thou/uL (0.11-0.59); #Neutrophils 3.4 thou/uL (1.40-6.50); %Basophils 0.2 % (0.0-1.0); %Eosinophils 5.4 % (0.0-10.0); %Monocytes 10.8 % (0.0-10.0); %Neutrophils 70.6 % (42.0-75.0); Hemoglobin 10.4 g/dL (14.0-18.0); Mean Corpuscular HGB CONC 30.5 g/dL (32.0-36.0); Mean Corpuscular Hemoglobin 31.4 pg (27.0-31.0); Mean Platelet Volume 8.6 fL (7.4-10.4); Platelet Count 111 thou/uL (130-400); RBC Distribution Width 17.8 % (11.5-14.5); Red Blood Cell (RBC) Count 3.32 mill/uL (4.70-6.10); White Blood Cell (WBC) Count 4.8 thou/uL (4.8-10.8)
[2018-12-17 06:04] LABS: ALT (SGPT) 189 U/L (8-55); AST (SGOT) 48 U/L (5-34); Albumin 3.2 g/dL (3.4-4.8); Alkaline Phosphatase 113 U/L (40-150); Anion Gap 12 mmol/L (10-20); BUN (Urea Nitrogen) 16 mg/dL (8.4-25.7); Bilirubin, Total 1.1 mg/dL (0.2-1.2); Calc. Creatinine Clearance 75 mL/min (70-130); Calcium 8.1 mg/dL (7.8-10.44); Carbon Dioxide 25 mmol/L (23-31); Chloride 99 mmol/L (98-107); Estimated GFR-MDRD 69; Glucose 131 mg/dL (83-110); Potassium 3.8 mmol/L (3.5-5.1); Protein, Total 5.2 g/dL (5.8-8.1); Sodium 132 mmol/L (136-145)
--- NOTE | 2018-12-17 08:11 | PDOC.PN ---
- Subjective Encounter Start Date: 12/17/18 Encounter Start Time: 08:09 Subjective: Feeling better. had BM and diuresing well with current diuretic regimen. -: No fever or SOB. Leg swelling is getting better. - Objective Vital Signs & Weight: Vital Signs (12 hours) Temp Pulse Resp BP Pulse Ox 12/17/18 04:00 97.4 F L 108 H 18 99/72 97 Weight Admit Weight 206 lb 14.4 oz Weight 205 lb 4.8 oz I&O: 12/16/18 12/17/18 12/18/18 06:59 06:59 06:59 Intake Total 120 900 Output Total 700 1200 Balance -580 -300 Result Diagrams: 12/17/18 05:17 12/17/18 05:17 Additional Labs: Accuchecks 12/17/18 12/16/18 12/16/18 05:41 20:27 16:58 POC Glucose 140 H 142 H 203 H 12/16/18 10:36 POC Glucose 130 H Phys Exam - Physical Examination Constitutional: NAD HEENT: PERRLA, moist MMs Neck: no JVD, supple fair air entry bilaterally with no obvious crackles or rhonchi Cardiovascular: RRR Gastrointestinal: soft, non-tender, no distention, positive bowel sounds mild to moderate bilateral leg edema Neurological: non-focal, moves all 4 limbs Decreased sensation of both feet Psychiatric: A&O x 3 Skin: no rash Deviation from normal: sacral decubitus ulcer Dx/Plan (1) Anasarca Code(s): R60.1 - GENERALIZED EDEMA Status: Acute Comment: May be related to Recently started Darzalex used for Multiple myeloma which can cause peripheral edema. Cardiogenic etiology is also considered. Awaiting echo report. (2) Pleural effusion Code(s): J90 - PLEURAL EFFUSION, NOT ELSEWHERE CLASSIFIED Status: Acute (3) Ascites Code(s): R18.8 - OTHER ASCITES Status: Acute Comment: Not amenable to drainage. (4) Acute metabolic encephalopathy Code(s): G93.41 - METABOLIC ENCEPHALOPATHY Status: Acute Comment: Resolved. Most likely due to hypotension. (5) CKD (chronic kidney disease) stage 3, GFR 30-59 ml/min Code(s): N18.3 - CHRONIC KIDNEY DISEASE, STAGE 3 (MODERATE) Status: Acute (6) Hypokalemia Code(s): E87.6 - HYPOKALEMIA Status: Acute Comment: Repleted (7) Diabetes mellitus Code(s): E11.9 - TYPE 2 DIABETES MELLITUS WITHOUT COMPLICATIONS Status: Acute (8) Physical deconditioning Code(s): R53.81 - OTHER MALAISE Status: Acute (9) Peripheral neuropathic pain Code(s): M79.2 - NEURALGIA AND NEURITIS, UNSPECIFIED Status: Acute (10) Hypotension Status: Acute (11) Heart murmur Code(s): R01.1 - CARDIAC MURMUR, UNSPECIFIED Status: Acute (12) Multiple myeloma Code(s): C90.00 - MULTIPLE MYELOMA NOT HAVING ACHIEVED REMISSION Status: Chronic Comment: Treatment as per Oncologist. On Darzalex. (13) Decubitus skin ulcer Code(s): L89.90 - PRESSURE ULCER OF UNSPECIFIED SITE, UNSPECIFIED STAGE Status : Acute Qualifiers: Pressure injury location: sacral region Pressure injury stage: stage 2 Qualified Code(s): L89.152 - Pressure ulcer of sacral region, stage 2 Comment: Present on admission. (14) Acute encephalopathy Code(s): G93.40 - ENCEPHALOPATHY, UNSPECIFIED Status: Acute Comment: Metabolic due to hypotension and medications - Plan Increase spironolactone to 50 bid. Continue low dose lasix. -: Monitor CMP and renal function. -: Consult PT/OT. Increase activity. -: Awaiting Echo report. -: Appreciate inputs from cardiology, Oncology and Nephrology * .
[2018-12-17] MEDS ORDERED: Spironolactone 25 MG TAB PO SCH ×2 (09:00→17:00)
[2018-12-17] MEDS: Heparin 5,000 UNITS/ML VIAL SC SCH ×2 (09:01→21:26)
[2018-12-17] MEDS: Polyethylene Glycol 3350 17 GM Packet PO SCH ×2 (09:03→21:26)
[2018-12-17] MEDS: Potassium Chloride 20 MEQ TAB PO SCH ×2 (09:04→16:09)
[2018-12-17] MEDS: Midodrine HCl 5 MG TAB PO SCH ×3 (09:04→21:25)
[2018-12-17] MEDS: Senokot S 8.6-50 MG TAB PO SCH ×2 (09:05→21:26)
[2018-12-17] MEDS: Morphine ER 15 MG TAB PO SCH ×2 (09:05→21:25)
[2018-12-17] MEDS: Furosemide 20 MG TAB PO SCH (09:06)
[2018-12-17 10:46] LABS: ALT (SGPT) 191 U/L (8-55); AST (SGOT) 37 U/L (5-34); Albumin 3.5 g/dL (3.4-4.8); Alkaline Phosphatase 118 U/L (40-150); Anion Gap 9 mmol/L (10-20); BUN (Urea Nitrogen) 16 mg/dL (8.4-25.7); Bilirubin, Total 1.3 mg/dL (0.2-1.2); Calc. Creatinine Clearance 69 mL/min (70-130); Calcium 8.4 mg/dL (7.8-10.44); Carbon Dioxide 29 mmol/L (23-31); Chloride 97 mmol/L (98-107); Estimated GFR-MDRD 63; Globulin 1.8 g/dL (2.4-3.5); Glucose 236 mg/dL (83-110); Potassium 3.4 mmol/L (3.5-5.1); Protein, Total 5.3 g/dL (5.8-8.1); Sodium 132 mmol/L (136-145)
[2018-12-17 12:48] VITALS: BMI 29.4
--- NOTE | 2018-12-17 16:36 | PDOC.CTH ---
Cardiology Progress Note - Subjective He is feeling better. Breathing better. He walked with PT and he felt very short winded with exertion. - Objective Vital Signs Temp Pulse Pulse Pulse Pulse Resp BP 12/17/18 14:38 124 H 125 H 103 H 89/62 L 12/17/18 13:26 122 H 130 H 103/69 12/17/18 12:23 97.8 F 124 H 18 12/17/18 08:55 97.6 F 119 H 18 BP BP BP BP Pulse Ox 12/17/18 14:38 93/61 108/82 12/17/18 13:26 117/78 12/17/18 12:23 93/73 97 12/17/18 08:55 110/58 L 100 Admit Weight 206 lb 14.4 oz Weight 205 lb 4.8 oz 12/16/18 12/17/18 12/18/18 06:59 06:59 06:59 Intake Total 120 900 Output Total 700 1200 Balance -580 -300 - Physical Examination General/Neuro: alert & oriented x3, NAD Neck: no JVD present Lungs: unlabored respirations Heart: RRR Abdomen: NT/ND Extremities: + edema B (1+) - Telemetry Telemetry Rhythm: Stach vs 2-1 flutter? - Labs Result Diagrams: 12/17/18 05:17 12/17/18 09:54 Troponin/CKMB CK-MB (CK-2) 3.5 ng/mL (0-6.6) 12/15/18 14:55 Troponin I 0.057 ng/mL (< 0.028) H 12/15/18 20:54 - Assessment/Plan 1. Severe Aortic stenosis, low flow low gradient. 2. Severe LV dysfunciton EF at 15-20% 3. Acute new onset systolic heart failure. 4. Multiple myeloma since 1998 with bony lesions and chronic pain. PLAN: - We had a long conversation with him and his about how to proceed. - We spoke abut SAVR vrs TAVR and told him I would recommend TAVR over open surgery for him given his co morbidities but have to evaluate if he is a candidate for this with a roght and left herat cath. - Continue IV diuresis for now. - He will talk with family about how to proceed. - If he decides for TAVR will need a right and left heart cath on Thursday. He may also decide on follow up and decide as an outpatient. - He will need a lifevest before discharge but this was not discussed with him yet as this is al new to him. Will discuss this with him when closer to discharge.
[2018-12-17] MEDS ORDERED: Furosemide 20 MG TAB PO SCH (17:00)
[2018-12-17] MEDS: Carvedilol 3.125 MG TAB PO SCH (18:36)
--- NOTE | 2018-12-17 19:08 | PRG ---
DATE OF SERVICE: 12/17/2018 SUBJECTIVE: Patient was seen and examined at bedside and overnight events noted. Patient denies any shortness of breath or chest pain or palpitation. No history of nausea or vomiting or diarrhea or fever or chills or cramps. OBJECTIVE: GENERAL: This is a well-build male, in no acute distress. VITAL SIGNS: Temperature 97.8, pulse 124, respiratory rate 18, blood pressure 108/82. HEENT: Atraumatic, normocephalic. Oral mucosa is moist NECK: Supple. CARDIOVASCULAR: S1, S2 heard. Rate and rhythm regular. RESPIRATORY: Clear to auscultation. GASTROINTESTINAL: Abdomen is soft. MUSCULOSKELETAL: No tenderness. No edema. DERMATOLOGIC: No skin rash. NEUROLOGIC: Alert and awake and oriented X3. No focal neurologic deficits. Moving all the extremities. PSYCHIATRIC: Mood and affect normal. LABORATORY DATA: Potassium is 3.4, BUN is 16, creatinine is 1.1 ASSESSMENT AND PLAN: 1. Acute kidney injury, stable. 2. Edema. 3. Hypertension. 4. Multiple myeloma. 5. Proteinuria. 6. Hypokalemia, replace and monitor. 7. Avoid nephrotoxins. 8. Cautious diuresis and we will follow. 9. Renally dose medications. Job ID: [id number]
[2018-12-17] MEDS: Amitriptyline HCl 100 MG TAB PO SCH (19:22)
[2018-12-18] MEDS ORDERED: Furosemide 40 MG/4 ML VIAL SLOW IVP SCH (06:00)
[2018-12-18 06:12] LABS: #Eosinphils 0.1 thou/uL (0.0-0.7); #Lymphocytes 0.3 thou/uL (1.20-3.40); #Monocytes 0.5 thou/uL (0.11-0.59); #Neutrophils 3.7 thou/uL (1.40-6.50); %Basophils 0.6 % (0.0-1.0); %Eosinophils 1.7 % (0.0-10.0); %Lymphocytes 6.8 % (21.0-51.0); %Monocytes 10.4 % (0.0-10.0); %Neutrophils 80.5 % (42.0-75.0); Hemoglobin 10.5 g/dL (14.0-18.0); Mean Corpuscular HGB CONC 31.2 g/dL (32.0-36.0); Mean Corpuscular Hemoglobin 31.8 pg (27.0-31.0); Mean Platelet Volume 8.3 fL (7.4-10.4); Platelet Count 110 thou/uL (130-400); RBC Distribution Width 17.9 % (11.5-14.5); Red Blood Cell (RBC) Count 3.29 mill/uL (4.70-6.10); White Blood Cell (WBC) Count 4.6 thou/uL (4.8-10.8)
[2018-12-18] MEDS: Furosemide 20 MG/2 ML VIAL SLOW IVP SCH ×2 (06:19→14:54)
[2018-12-18 06:29] LABS: ALT (SGPT) 157 U/L (8-55); AST (SGOT) 33 U/L (5-34); Albumin 3.3 g/dL (3.4-4.8); Alkaline Phosphatase 115 U/L (40-150); Anion Gap 14 mmol/L (10-20); BUN (Urea Nitrogen) 19 mg/dL (8.4-25.7); Calc. Creatinine Clearance 68 mL/min (70-130); Calcium 8.5 mg/dL (7.8-10.44); Carbon Dioxide 23 mmol/L (23-31); Chloride 100 mmol/L (98-107); Estimated GFR-MDRD 62; Glucose 167 mg/dL (83-110); Potassium 4.7 mmol/L (3.5-5.1); Protein, Total 5.3 g/dL (5.8-8.1); Sodium 132 mmol/L (136-145)
[2018-12-18] MEDS: Polyethylene Glycol 3350 17 GM Packet PO SCH ×2 (08:00→20:59)
[2018-12-18] MEDS: Morphine ER 15 MG TAB PO SCH ×2 (08:01→20:59)
[2018-12-18] MEDS: Carvedilol 3.125 MG TAB PO SCH ×2 (08:01→17:04)
[2018-12-18] MEDS: Midodrine HCl 5 MG TAB PO SCH (08:01)
[2018-12-18] MEDS: Senokot S 8.6-50 MG TAB PO SCH ×2 (08:01→20:59)
[2018-12-18] MEDS: Heparin 5,000 UNITS/ML VIAL SC SCH ×3 (08:02→21:02)
--- NOTE | 2018-12-18 09:31 | PDOC.PN ---
- Subjective Encounter Start Date: 12/18/18 Encounter Start Time: 09:29 Subjective: Had SOB last night which improved with breathing treatments. -: Feeling better this am. -: No chest pain, fever or palpitation. Found to have severe and Low EF 15 - Objective Vital Signs & Weight: Vital Signs (12 hours) Temp Pulse Resp BP Pulse Ox 12/18/18 03:45 97.5 F L 110 H 18 102/76 99 12/18/18 00:44 21 H 93 L Weight Admit Weight 206 lb 14.4 oz Weight 204 lb 3.2 oz I&O: 12/17/18 12/18/18 12/19/18 06:59 06:59 06:59 Intake Total 900 1110 Output Total 1200 875 Balance -300 235 Result Diagrams: 12/18/18 05:33 12/18/18 05:33 Additional Labs: Accuchecks 12/18/18 12/17/18 12/17/18 05:21 20:53 17:20 POC Glucose 193 H 173 H 186 H 12/17/18 11:50 POC Glucose 210 H Phys Exam - Physical Examination Constitutional: NAD (rly male in no obvious distress) elderly male in no distress afebrile. HEENT: PERRLA, moist MMs Neck: supple Decreased air entry both bases with some crackles at the bases Cardiovascular: no rub Regular but tachycardic. systolic murmur noted Gastrointestinal: soft, non-tender, positive bowel sounds Musculoskeletal: pulses present Mild bilateral leg edema Neurological: non-focal, moves all 4 limbs Psychiatric: A&O x 3 Dx/Plan (1) Acute on chronic combined systolic and diastolic congestive heart failure Code(s): I50.43 - ACUTE ON CHRONIC COMBINED SYSTOLIC AND DIASTOLIC HRT FAIL Status: Acute (2) Severe aortic stenosis Code(s): I35.0 - NONRHEUMATIC AORTIC (VALVE) STENOSIS Status: Acute (3) Anasarca Code(s): R60.1 - GENERALIZED EDEMA Status: Acute Comment: Due to acute on chronic CHF. found to have EF of 15 and severe . Darzalex used for Multiple myeloma which can cause peripheral edema may have been contributory. (4) Pleural effusion Code(s): J90 - PLEURAL EFFUSION, NOT ELSEWHERE CLASSIFIED Status: Acute (5) Ascites Code(s): R18.8 - OTHER ASCITES Status: Acute Comment: Not amenable to drainage. (6) Acute metabolic encephalopathy Code(s): G93.41 - METABOLIC ENCEPHALOPATHY Status: Acute Comment: Resolved. Most likely due to hypotension. (7) CKD (chronic kidney disease) stage 3, GFR 30-59 ml/min Code(s): N18.3 - CHRONIC KIDNEY DISEASE, STAGE 3 (MODERATE) Status: Acute (8) Hypokalemia Code(s): E87.6 - HYPOKALEMIA Status: Acute Comment: Repleted (9) Diabetes mellitus Code(s): E11.9 - TYPE 2 DIABETES MELLITUS WITHOUT COMPLICATIONS Status: Acute (10) Physical deconditioning Code(s): R53.81 - OTHER MALAISE Status: Acute (11) Peripheral neuropathic pain Code(s): M79.2 - NEURALGIA AND NEURITIS, UNSPECIFIED Status: Acute (12) Hypotension Status: Acute (13) Heart murmur Code(s): R01.1 - CARDIAC MURMUR, UNSPECIFIED Status: Acute (14) Multiple myeloma Code(s): C90.00 - MULTIPLE MYELOMA NOT HAVING ACHIEVED REMISSION Status: Chronic Comment: Treatment as per Oncologist. On Darzalex. (15) Decubitus skin ulcer Code(s): L89.90 - PRESSURE ULCER OF UNSPECIFIED SITE, UNSPECIFIED STAGE Status : Acute Qualifiers: Pressure injury location: sacral region Pressure injury stage: stage 2 Qualified Code(s): L89.152 - Pressure ulcer of sacral region, stage 2 Comment: Present on admission. (16) Acute encephalopathy Code(s): G93.40 - ENCEPHALOPATHY, UNSPECIFIED Status: Acute Comment: Metabolic due to hypotension and medications (17) Tachycardia Code(s): R00.0 - TACHYCARDIA, UNSPECIFIED Status: Acute Comment: Sinus. Most likely related to midodrine. - Plan DC midodrine due to sinus tachycardia -: Continue diuretics. -: right and left heart cath contemplated by cardiology in prep for TAVR -: Continue other treatments. -: Monitor vitals, renal function, I/O and electrolytes with diuresis * .
--- NOTE | 2018-12-18 14:38 | PDOC.CTH ---
Cardiology Progress Note - Subjective The pt seen and examined. No overnight events. No cardiac complaints. - Objective Vital Signs Temp Pulse Resp BP Pulse Ox 12/18/18 11:15 97.9 F 104 H 15 91/61 94 L 12/18/18 07:45 97.3 F L 107 H 16 118/68 95 12/18/18 03:45 97.5 F L 110 H 18 102/76 99 Admit Weight 206 lb 14.4 oz Weight 204 lb 3.2 oz 12/17/18 12/18/18 12/19/18 06:59 06:59 06:59 Intake Total 900 1110 Output Total 1200 875 Balance -300 235 - Physical Examination General/Neuro: alert & oriented x3 Neck: no JVD present Lungs: other: (diminished at bases; Lt>Rt) Heart: RRR Abdomen: soft Extremities: other: (2+ pitting BLE edema around ankles) - Telemetry Telemetry Rhythm: [id number] - Labs Result Diagrams: 12/18/18 05:33 12/18/18 05:33 Troponin/CKMB CK-MB (CK-2) 3.5 ng/mL (0-6.6) 12/15/18 14:55 Troponin I 0.057 ng/mL (< 0.028) H 12/15/18 20:54 - Assessment/Plan 1. Acute on Chronic combined HF with EF 20-25% - improving. On bblocker and Lasix; not on YEVGENIY/ARB 2/2 hx of CKD; He will need a lifevest before discharge but this was not discussed with him yet as this is al new to him. Dr Campos Will discuss this with him when closer to discharge. 2. Severe with low flow low gradient. - The pt agreed to have TAVR for now; possible Rt and Lt LHC on Thursday if the pt choose TAVR 3. Anasarca and Ascites - improving with Lasix 20mg IV; 4. Multiple myeloma since 1998 with bony lesions and chronic pain. 5. HILTON on CKD - stable 6. DM type 2 - managed by PCP 7. HTN - stable 8. Tachycardia possible 2/2 Midodrine - Midodrine is d/angela. MAR reviewed * He will need a lifevest before discharge but this was not discussed with him yet as this is al new to him. Dr Campos Will discuss this with him when closer to discharge. * Rt and Lt heart cath contemplated by cardiology on Thursday in prep for TAVR if the pt choose TAVR Pt. seen and eval. by me. I agree with the A/P by the FINANCIAL AUDITOR. Elderly pt. with multiple medical problems. Increased risk for any intervention. Increased risk also without intervention. Difficult situation. Review of Systems - Review of Systems Constitutional: reports: no symptoms reported EENTM: reports: no symptoms reported Respiratory: reports: no symptoms reported Cardiac (ROS): reports: no symptoms reported ABD/GI: reports: no symptoms reported : reports: no symptoms reported
--- NOTE | 2018-12-18 15:16 | PRG ---
DATE OF SERVICE: 12/18/2018 SUBJECTIVE: Patient was seen and examined at bedside and overnight events noted. Patient denies any shortness of breath or chest pain or palpitation. No history of nausea or vomiting or diarrhea or fever or chills or cramps. OBJECTIVE: GENERAL: This is a well-built male, in no apparent distress. VITAL SIGNS: Temperature 97.9, heart rate 104, respiratory rate , blood pressure 91/61. HEENT: Atraumatic, normocephalic. Oral mucosa is moist NECK: Supple. CARDIOVASCULAR: S1, S2 heard. Rate and rhythm regular. RESPIRATORY: Clear to auscultation. GASTROINTESTINAL: Abdomen is soft. MUSCULOSKELETAL: No tenderness. No edema. DERMATOLOGIC: No skin rash. NEUROLOGIC: Alert and awake and oriented X3. No focal neurologic deficits. Moving all the extremities. PSYCHIATRIC: Mood and affect normal. LABORATORY DATA: Potassium is 4.7, BUN is 19, creatinine is 1.1. ASSESSMENT AND PLAN: 1. Acute kidney injury. 2. Edema. 3. . 4. Multiple myeloma. 5. Proteinuria. 6. Creatinine is stable. Monitor closely. 7. Advised to have followup as outpatient. Job ID: [id number]
[2018-12-18] MEDS: Amitriptyline HCl 100 MG TAB PO SCH (19:34)
--- NOTE | 2018-12-18 22:52 | PDOC.EVN ---
Event Note - Event Note Event Note: Patient refusing bedside glucose, requesting to have it discontinued.
[2018-12-19] MEDS: Furosemide 20 MG/2 ML VIAL SLOW IVP SCH ×3 (06:06→14:42)
[2018-12-19 06:23] LABS: #Eosinphils 0.3 thou/uL (0.0-0.7); #Lymphocytes 0.6 thou/uL (1.20-3.40); #Monocytes 0.5 thou/uL (0.11-0.59); #Neutrophils 3.5 thou/uL (1.40-6.50); %Basophils 0.3 % (0.0-1.0); %Lymphocytes 12.9 % (21.0-51.0); %Monocytes 9.7 % (0.0-10.0); %Neutrophils 71.1 % (42.0-75.0); Hemoglobin 10.8 g/dL (14.0-18.0); Mean Corpuscular Hemoglobin 32.2 pg (27.0-31.0); Mean Platelet Volume 9.6 fL (7.4-10.4); Platelet Count 112 thou/uL (130-400); RBC Distribution Width 17.8 % (11.5-14.5); Red Blood Cell (RBC) Count 3.36 mill/uL (4.70-6.10); White Blood Cell (WBC) Count 4.9 thou/uL (4.8-10.8)
[2018-12-19 06:40] LABS: ALT (SGPT) 135 U/L (8-55); AST (SGOT) 45 U/L (5-34); Albumin 3.5 g/dL (3.4-4.8); Alkaline Phosphatase 134 U/L (40-150); Anion Gap 16 mmol/L (10-20); BUN (Urea Nitrogen) 29 mg/dL (8.4-25.7); Bilirubin, Total 0.9 mg/dL (0.2-1.2); Calc. Creatinine Clearance 59 mL/min (70-130); Calcium 8.9 mg/dL (7.8-10.44); Carbon Dioxide 24 mmol/L (23-31); Chloride 95 mmol/L (98-107); Estimated GFR-MDRD 53; Globulin 2.3 g/dL (2.4-3.5); Glucose 152 mg/dL (83-110); Magnesium 2.1 mg/dL (1.6-2.6); Potassium 5.1 mmol/L (3.5-5.1); Protein, Total 5.8 g/dL (5.8-8.1); Sodium 130 mmol/L (136-145)
[2018-12-19] MEDS: Senokot S 8.6-50 MG TAB PO SCH ×2 (08:44→20:30)
[2018-12-19] MEDS: Carvedilol 3.125 MG TAB PO SCH ×2 (08:44→17:40)
[2018-12-19] MEDS: Morphine ER 15 MG TAB PO SCH ×2 (08:45→20:28)
[2018-12-19] MEDS: Polyethylene Glycol 3350 17 GM Packet PO SCH ×2 (08:46→20:29)
[2018-12-19] MEDS: Heparin 5,000 UNITS/ML VIAL SC SCH ×2 (08:50→20:28)
--- NOTE | 2018-12-19 14:31 | PDOC.CTH ---
Cardiology Progress Note - Subjective The pt seen and examined. No overnight events. No cardiac complaints. He complains of intermittent SOB with O2sat 95-97% with RA. - Objective Vital Signs Temp Pulse Resp BP BP Pulse Ox 12/19/18 12:23 97.9 F 115 H 18 111/69 97 12/19/18 07:52 97.5 F L 110 H 18 103/70 98 12/19/18 06:05 115 H 100/71 12/19/18 04:16 97.7 F 114 H 19 99/66 97 Admit Weight 206 lb 14.4 oz Weight 203 lb 9.6 oz 12/18/18 12/19/18 12/20/18 06:59 06:59 06:59 Intake Total 1110 890 Output Total 875 600 Balance 235 290 - Physical Examination General/Neuro: alert & oriented x3 Neck: no JVD present Lungs: CTA (diminished at bases) Heart: RRR Abdomen: soft Extremities: other: - Telemetry Telemetry Rhythm: 2-3+ pitting BLE edema - Labs Result Diagrams: 12/19/18 06:04 12/19/18 06:04 Troponin/CKMB CK-MB (CK-2) 3.5 ng/mL (0-6.6) 12/15/18 14:55 Troponin I 0.057 ng/mL (< 0.028) H 12/15/18 20:54 - Assessment/Plan 1. Acute on Chronic combined HF with EF 20-25% - improving. On bblocker and Lasix; not on YEVGENIY/ARB 2/2 hx of CKD; He will need a Lifevest before discharge but this was not discussed with him yet as this is al new to him. Dr Campos Will discuss this with him when closer to discharge. 2. Severe with low flow low gradient - The pt agreed to have TAVR; Plan for Rt and Lt cardiac cath on Thursday 3. Anasarca and Ascites - TEDs 4. Multiple myeloma since 1998 with bony lesions and chronic pain. 5. HILTON on CKD - stable 6. DM type 2 - managed by PCP 7. HTN - stable 8. Tachycardia possible 2/2 Midodrine - Midodrine is d/angela. MAR reviewed * He will need a lifevest before discharge but this was not discussed with him yet as this is al new to him. Dr Campos Will discuss this with him when closer to discharge. * Rt and Lt heart cath contemplated by cardiology on Thursday in prep for TAVR if the pt choose TAVR. Pt. seen and eval. by me. I agree with the A/P by the BRICK CLEANER. we have discussed the pt. and plan. Dr. Campos will evaluate in AM to see if the pt. can undergo the cath. Review of Systems - Review of Systems Constitutional: reports: no symptoms reported EENTM: reports: no symptoms reported Respiratory: reports: see HPI Cardiac (ROS): reports: no symptoms reported ABD/GI: reports: no symptoms reported : reports: no symptoms reported Musculoskeletal: reports: no symptoms reported Skin: reports: no symptoms reported
--- NOTE | 2018-12-19 15:18 | PRG ---
DATE OF SERVICE: 12/19/2018 SUBJECTIVE: The patient is seen and examined at the bedside. His family is present in the room during my visit. He feels fair. His appetite is fair. OBJECTIVE: VITAL SIGNS: Blood pressure is 111/69, pulse is 115 beats per minute, respiratory rate is 18, temperature is 97.9, O2 saturation is 97% on room air. HEENT: His head is atraumatic and normocephalic. Skin is palish. Oral mucosa is moist. Sclerae are nonicteric. NECK: Supple. LUNGS: Breath sounds diminished at both bases. HEART: S1 and S2. Tachycardic. No S3. No S4. Systolic murmur of the right sternal border, 2/6. ABDOMEN: Obese, soft, and nontender. EXTREMITIES: 2+ peripheral edema, similar bilateral in both lower extremities. NEUROLOGIC: He follows my commands. He moves his all four extremities. LABORATORY DATA: Showed sodium of 130, potassium 5.1, chloride 95, CO2 of 24, BUN 29, creatinine 1.30, glycemia is ranging from 145 to 193. AST 45, ALT 135. White count 4.9, hemoglobin 10.8, hematocrit 34.9, MCV 104, platelet count is 112,000. IMPRESSION: 1. [id number] combined systolic and diastolic congestive heart failure with left ventricular ejection fraction of 20%. 2. Severe aortic stenosis. 3. Anasarca. 4. Pleural effusion, acute. 5. Ascites. 6. Acute metabolic encephalopathy, resolved. 7. Hypokalemia, resolved. 8. Diabetes mellitus, relatively well controlled. 9. Physical deconditioning. 10. Multiple myeloma, chronic. 11. Tachycardia. PLAN: 1. The patient is supposed to have cardiac catheterization done tomorrow before he is qualified for TAVR. If he does, he will go to [place] for that operation. Also, he will need LifeVest most likely. This is going to be raised per Cardiology. 2. We will continue his current regimen and increase his furosemide to 40 once a day since he is not making that much urine and his output was only 600 mL in the last 24 hours. Job ID: [id number]
[2018-12-19] MEDS ORDERED: Communication Order-Pharmacy FS SCH (18:30)
[2018-12-19] MEDS: Amitriptyline HCl 100 MG TAB PO SCH (20:28)
--- NOTE | 2018-12-19 20:43 | PRG ---
DATE OF SERVICE: 12/19/2018 SUBJECTIVE: The patient was seen and examined at bedside and overnight events noted. The patient denies any shortness of breath or chest pain or palpitation. No history of nausea or vomiting or diarrhea or fever or chills or cramps. OBJECTIVE: GENERAL: This is a well-built male, in no apparent distress. VITAL SIGNS: Temperature 97.7. Heart rate 109. Respiratory rate 18, blood pressure 93/64. HEENT: Atraumatic, normocephalic. Oral mucosa is moist NECK: Supple. CARDIOVASCULAR: S1, S2 heard. Rate and rhythm regular. RESPIRATORY: Clear to auscultation. GASTROINTESTINAL: Abdomen is soft. MUSCULOSKELETAL: No tenderness. No edema. DERMATOLOGIC: No skin rash. NEUROLOGIC: Alert and awake and oriented X3. No focal neurologic deficits. Moving all the extremities. PSYCHIATRIC: Mood and affect normal. LABORATORY DATA: Potassium is 5.1, BUN is 29, creatinine is 1.3. ASSESSMENT AND PLAN: 1. Acute kidney injury, monitor renal function closely, on diuretics. 2. Edema, better. 3. Multiple myeloma. 4. Proteinuria. 5. Monitor labs closely. Job ID: [id number]
[2018-12-20] MEDS: Furosemide 20 MG/2 ML VIAL SLOW IVP SCH ×2 (06:14→14:59)
[2018-12-20] MEDS: Carvedilol 3.125 MG TAB PO SCH ×2 (06:14→17:11)
[2018-12-20 06:44] LABS: #Eosinphils 0.1 thou/uL (0.0-0.7); #Lymphocytes 0.4 thou/uL (1.20-3.40); #Monocytes 0.4 thou/uL (0.11-0.59); #Neutrophils 3.2 thou/uL (1.40-6.50); %Basophils 0.6 % (0.0-1.0); %Eosinophils 3.3 % (0.0-10.0); %Lymphocytes 10.6 % (21.0-51.0); %Monocytes 9.5 % (0.0-10.0); Hemoglobin 10.8 g/dL (14.0-18.0); Mean Corpuscular HGB CONC 31.1 g/dL (32.0-36.0); Mean Corpuscular Hemoglobin 32.1 pg (27.0-31.0); Platelet Count 121 thou/uL (130-400); RBC Distribution Width 17.4 % (11.5-14.5); Red Blood Cell (RBC) Count 3.35 mill/uL (4.70-6.10); White Blood Cell (WBC) Count 4.2 thou/uL (4.8-10.8)
[2018-12-20 07:04] LABS: ALT (SGPT) 107 U/L (8-55); AST (SGOT) 31 U/L (5-34); Albumin 3.5 g/dL (3.4-4.8); Alkaline Phosphatase 117 U/L (40-150); Anion Gap 11 mmol/L (10-20); BUN (Urea Nitrogen) 30 mg/dL (8.4-25.7); Calc. Creatinine Clearance 58 mL/min (70-130); Calcium 8.7 mg/dL (7.8-10.44); Carbon Dioxide 30 mmol/L (23-31); Chloride 95 mmol/L (98-107); Estimated GFR-MDRD 52; Globulin 1.8 g/dL (2.4-3.5); Glucose 144 mg/dL (83-110); Potassium 4.1 mmol/L (3.5-5.1); Protein, Total 5.3 g/dL (5.8-8.1); Sodium 132 mmol/L (136-145)
[2018-12-20] MEDS: Heparin 5,000 UNITS/ML VIAL SC SCH ×2 (09:05→20:41)
[2018-12-20] MEDS: Polyethylene Glycol 3350 17 GM Packet PO SCH ×2 (09:05→20:44)
[2018-12-20] MEDS: Senokot S 8.6-50 MG TAB PO SCH ×2 (09:05→20:43)
[2018-12-20] MEDS: Morphine ER 15 MG TAB PO SCH ×2 (10:42→20:42)
--- NOTE | 2018-12-20 12:38 | PRG ---
DATE OF SERVICE: 12/20/2018 SUBJECTIVE: The patient was seen and examined at the bedside. The family is present in the room. We all await his cardiac catheterization, which supposed to be done this morning. He does not have much complaints to offer. OBJECTIVE: VITAL SIGNS: Blood pressure is 107/80, pulse is 102, temperature is 97.8, respiratory rate is 15, and O2 saturation is 96% on room air. HEENT: Head is atraumatic and normocephalic. LUNGS: Clear. HEART: S1 and S2, somewhat irregular, systolic murmur mainly located in the right upper sternal border. ABDOMEN: Soft and nondistended. EXTREMITIES: No clubbing, cyanosis, or edema. NEUROLOGICAL: Intact. LABORATORY DATA: White count of 4.2, hemoglobin 10.8, hematocrit 34.7, MCV 103, RDW 17.4, platelet count is 121. Sodium of 132, potassium 4.1, chloride 95, BUN of 30, creatinine 1.32, glycemia is ranging from 144 to 184, ALT 107, AST 31, alkaline phosphatase 117, total protein 5.3, globulin 1.8. Microbiology, none. IMPRESSION: 1. Acute on chronic combined systolic and diastolic congestive heart failure with left ventricular ejection fraction of 20%. The patient is supposed to have left heart catheterization this morning to be evaluated for possible transfer to [place] for transcatheter aortic valve replacement. 2. Severe aortic stenosis. 3. Anasarca. 4. Pleural effusion, acute. 5. Ascites. 6. Acute metabolic encephalopathy, resolved. 7. Hypokalemia, resolved. 8. Diabetes mellitus, relatively well controlled. 9. Physical deconditioning. 10. Multiple myeloma, chronic with thrombocytopenia, leukopenia, and some anemia, macrocytic. 11. Tachycardia. The patient's urine output increased since the dose of Lasix was increased to 40 mg and his fluid balance is negative at -140. His weight is down to 203 from 206 four days ago. We are waiting for the cardiac cath. Job ID: [id number]
--- NOTE | 2018-12-20 13:22 | PRG ---
DATE OF SERVICE: 12/20/2018 SUBJECTIVE: An 78-year-old gentleman, being seen for acute kidney injury. The patient denied any nausea, vomiting, or chest pain. OBJECTIVE: GENERAL: The patient is awake and alert. VITAL SIGNS: Afebrile, pulse 96, breathing 16, blood pressure 107/80. GENERAL APPEARANCE AND MENTAL STATUS: Fair. HEAD/NECK: Normocephalic. Atraumatic. EYES: EOMI. No deformity. EARS: Clear. No ulcers. NOSE: Intact. No lesions. MOUTH: Clear. No discharge. THROAT: Clear. No exudate. LUNGS: Clear. No crackles. CARDIAC: S1, S2. No rub. ABDOMEN: Benign. Bowel sounds positive. GENITALIA/RECTUM: Moe absent. BACK/EXTREMITIES: Edema 0+. NEUROLOGICAL: Alert and motor intact. SKIN: LYMPHATICS: LABORATORY DATA: Labs show hemoglobin 10.8. Creatinine 1.3. ASSESSMENT AND RECOMMENDATIONS: 1. Acute kidney injury with chronic kidney disease, stable. 2. Hypertension, stable. 3. Anemia, stable. 4. Medication based on GFR, appropriate. I will sign off from this patient. Please re-consult as needed. Job ID: [id number]
--- NOTE | 2018-12-20 18:05 | PDOC.CTH ---
Cardiology Progress Note - Subjective He is feeling better. Diuresed well over the weekend. He is now able to lay flat. His creatinine increase slightly over the weekend. - Objective Vital Signs Temp Pulse Resp BP BP Pulse Ox 12/20/18 15:00 98.1 F 108 H 17 98/67 95 12/20/18 11:30 97.4 F L 104 H 15 114/75 97 12/20/18 07:20 97.8 F 102 H 15 107/80 96 Admit Weight 206 lb 14.4 oz Weight 203 lb 5 oz 12/19/18 12/20/18 12/21/18 06:59 06:59 06:59 Intake Total 890 860 500 Output Total 600 1000 Balance 290 -140 500 - Physical Examination General/Neuro: alert & oriented x3, NAD Neck: no JVD present Lungs: unlabored respirations, other: (Mild crackles, decreased on left base. ) Heart: RRR Abdomen: NT/ND Extremities: + edema B (2+) - Telemetry Telemetry Rhythm: NSR - Labs Result Diagrams: 12/20/18 06:31 12/20/18 06:31 Troponin/CKMB CK-MB (CK-2) 3.5 ng/mL (0-6.6) 12/15/18 14:55 Troponin I 0.057 ng/mL (< 0.028) H 12/15/18 20:54 - Assessment/Plan 1. Severe Aortic stenosis, low flow low gradient. 2. Severe LV dysfunction EF at 15-20% 3. Acute new onset systolic heart failure. 4. Multiple myeloma since 1998 with bony lesions and chronic pain. PLAN: - Family has decided on proceeding with possible TAVR. He will need right and left heart cath first. Had to cancel today as his creatinine is on the way up. Will re evaluate later today to see if it continues to increase with further diuresis or if he needs to get fluid back. Clinically he still looks volume up. - He will need a lifevest before discharge, I discussed with him and family today and they agree to this. - Likely cath tomorrow if creatinine stable.
[2018-12-20 18:29] LABS: Anion Gap 12 mmol/L (10-20); BUN (Urea Nitrogen) 28 mg/dL (8.4-25.7); Calc. Creatinine Clearance 57 mL/min (70-130); Calcium 8.9 mg/dL (7.8-10.44); Carbon Dioxide 31 mmol/L (23-31); Chloride 95 mmol/L (98-107); Estimated GFR-MDRD 51; Glucose 165 mg/dL (83-110); Sodium 134 mmol/L (136-145)
[2018-12-20] MEDS ORDERED: Sodium Chloride 0.9% 250 ML IV SCH (20:00)
[2018-12-20] MEDS: Amitriptyline HCl 100 MG TAB PO SCH (20:41)
[2018-12-21 06:44] LABS: #Eosinphils 0.2 thou/uL (0.0-0.7); #Lymphocytes 0.6 thou/uL (1.20-3.40); #Monocytes 0.5 thou/uL (0.11-0.59); #Neutrophils 3.4 thou/uL (1.40-6.50); %Basophils 0.5 % (0.0-1.0); %Eosinophils 3.8 % (0.0-10.0); %Lymphocytes 12.1 % (21.0-51.0); %Monocytes 9.9 % (0.0-10.0); %Neutrophils 73.7 % (42.0-75.0); Hemoglobin 10.3 g/dL (14.0-18.0); Mean Corpuscular HGB CONC 31.4 g/dL (32.0-36.0); Mean Corpuscular Hemoglobin 32.5 pg (27.0-31.0); Mean Platelet Volume 8.4 fL (7.4-10.4); Platelet Count 129 thou/uL (130-400); RBC Distribution Width 17.6 % (11.5-14.5); Red Blood Cell (RBC) Count 3.17 mill/uL (4.70-6.10); White Blood Cell (WBC) Count 4.6 thou/uL (4.8-10.8)
[2018-12-21 07:01] LABS: ALT (SGPT) 86 U/L (8-55); AST (SGOT) 30 U/L (5-34); Albumin 3.4 g/dL (3.4-4.8); Alkaline Phosphatase 124 U/L (40-150); Anion Gap 11 mmol/L (10-20); BUN (Urea Nitrogen) 28 mg/dL (8.4-25.7); Calc. Creatinine Clearance 61 mL/min (70-130); Calcium 8.7 mg/dL (7.8-10.44); Carbon Dioxide 30 mmol/L (23-31); Chloride 96 mmol/L (98-107); Estimated GFR-MDRD 55; Globulin 1.9 g/dL (2.4-3.5); Glucose 144 mg/dL (83-110); Potassium 3.9 mmol/L (3.5-5.1); Protein, Total 5.3 g/dL (5.8-8.1); Sodium 133 mmol/L (136-145)
[2018-12-21] MEDS: Polyethylene Glycol 3350 17 GM Packet PO SCH ×2 (07:48→20:31)
[2018-12-21] MEDS: Morphine ER 15 MG TAB PO SCH ×2 (07:48→20:32)
[2018-12-21] MEDS: Heparin 5,000 UNITS/ML VIAL SC SCH ×2 (07:48→20:32)
[2018-12-21] MEDS: Senokot S 8.6-50 MG TAB PO SCH ×2 (07:49→20:31)
[2018-12-21] MEDS: Carvedilol 3.125 MG TAB PO SCH ×2 (07:53→16:05)
[2018-12-21] MEDS ORDERED: Fentanyl 100 MCG/2 ML VIAL ONE (09:50)
[2018-12-21] MEDS ORDERED: Midazolam HCl 2 mg/2 ml Vial ONE (09:50)
[2018-12-21] MEDS ORDERED: Sodium Chloride 0.9% 200 ML IV PRN (11:37)
[2018-12-21] MEDS ORDERED: Acetaminophen/Codeine 30-300mg Tablet PO PRN (11:37)
[2018-12-21] MEDS ORDERED: Sodium Chloride 0.9% 1,000 ML IV SCH (11:45)
[2018-12-21] MEDS ORDERED: Iopamidol 370 76% 100 ML VIAL ONE (12:56)
--- NOTE | 2018-12-21 15:02 | PRG ---
DATE OF SERVICE: 12/21/2018 SUBJECTIVE: The patient is seen and examined at the bedside. His and his daughter are present in the room during my visit. He just came back from the cardiac catheterization suite. OBJECTIVE: VITAL SIGNS: Blood pressure is 103/65, pulse 103, temperature is 98.4, respirations 16, O2 saturation is 95% on room air. HEENT: His pupils are responding to light properly. Sclerae are nonicteric. Oral mucosa is moist. NECK: Supple. LUNGS: Breath sounds somewhat diminished at both bases. HEART: S1 and S2, somewhat irregular with a loud systolic murmur mainly audible at the right upper sternal border. ABDOMEN: Soft and nontender. EXTREMITIES: No clubbing or cyanosis. There is 1+ peripheral edema similar bilaterally. NEUROLOGICAL: He is alert and oriented x4. There is no any motor deficits. LABORATORY DATA: Labs showed white count of 4.6, hemoglobin 10.3, hematocrit 32.7, platelet count is 129,000. Sodium of 133, potassium 3.9, chloride 96, CO2 of 30, BUN 28, creatinine 1.26. Glycemia is ranging from 144 to 165, ALT 86, serum total protein 5.3, globulin 1.9. IMPRESSION: 1. Severe aortic stenosis, status post cardiac catheterization, which apparently qualified him for TAVR. The patient is on the board to be transferred to [facility] for the operation. 2. Severe LV dysfunction with EF estimated at 15% to 20%. 3. Multiple myeloma with bony lesions and chronic pain. 4. Acute on chronic combined systolic and diastolic congestive heart failure. 5. Pleural effusion. 6. Ascites. 7. Acute metabolic encephalopathy, resolved. 8. Hypokalemia, resolved. 9. Diabetes mellitus relatively well controlled. 10. Physical deconditioning. 11. Tachycardia. PLAN: Transfer him to [facility] for TAVR surgery as soon as the bed is arranged, and for now, we will continue his current regimen. Job ID: [id number]
[2018-12-21 19:55] VITALS: BP 111/75; TEMP 97.7
[2018-12-21] MEDS: Amitriptyline HCl 100 MG TAB PO SCH (20:32)
--- NOTE | 2018-12-22 12:22 | DIS ---
DATE OF ADMISSION: 12/15/2018 DATE OF DISCHARGE: 12/21/2018 FINAL DIAGNOSES: 1. Aortic stenosis status post cardiac catheterization, severe LV dysfunction with EF estimated at 15% to 20%. 2. Multiple myeloma with bony lesions and chronic pain. 3. Acute on chronic combined systolic and diastolic congestive heart failure. 4. Pleural effusion. 5. Ascites. 6. Acute metabolic encephalopathy, resolved. 7. Hypokalemia, resolved. 8. Diabetes mellitus relatively well controlled. 9. Physical deconditioning. 10. Tachycardia. CONSULTANTS: 1. Pipo Campos MD, Cardiology Service. 2. Anna Bee NP and Betty Goodson MD, Nephrology Service. 3. Maritza Oswald MD, Cardiology Service. 4. Cornel Figueroa MD, Nephrology Service. PROCEDURE: Cardiac catheterization. IMAGIN. Chest x-ray at the time of admission showed prominent heart. Lungs hypo-expanded without any consolidation. Lytic lesions consistent with multiple myeloma in the skeleton. 2. Ultrasound of the abdomen showed: a. Abdominal ascites and pleural fluid. b. Gallbladder distention with borderline gallbladder wall. c. Possibility of bladder mass. 3. Echocardiogram showed LVEF of 20% to 25% with dilated left ventricle. Global hypokinesia. Moderate dilated left atrium. Moderate tricuspid regurgitation. Mild pulmonic regurgitation. IVC dilated. Small pericardial effusion without tamponade. Heavily calcified aortic valve, probably [id number] aortic valve stenosis. HOSPITAL COURSE: The patient is an 78-year-old male, who was admitted to the hospital with abdominal swelling and lower extremity swelling, was started on Lasix outpatient. However, this did not help his symptoms and he continued to have lower extremity swelling as well as abdominal swelling. He presented to the emergency room, where he was found to have ascites and blood pressure in the 90s. Fluid boluses did not help place the blood pressure in the emergency room and the patient was referred to the [facility] for admission to the hospital. At the time of evaluation by hospitalist group, his blood pressure was 91/75, heart rate was 102, respiratory rate was 16, and he had 2+ peripheral edema in lower extremities. His white count was normal, hemoglobin was 11. Basic metabolic panel showed sodium of 131, potassium 3.4, chloride 1.3, glucose 222. Troponin I was 0.043, then 0.048. Beta natriuretic peptide was up to 1109. Abdominal ultrasound was ordered. The patient was started on midodrine. The patient was seen by vocational rehabilitation technician, who recommended dialysis as tolerated. Oncologist was consulted and felt that his current medications for multiple myeloma which was Dulcolax, was not causing his anasarca and congestive heart failure. The pleural effusion and ascites were small. Initially, the fluid was not done by radiologist and the patient was started on spironolactone and Lasix. Cardiology consultation was requested. The patient was seen by Dr. Campos, who read the echocardiogram, has severe aortic stenosis and severe LVEF dysfunction at 15% to 20%. The family was informed about the findings and it was recommended to send him to tertiary care hospital in [place] for TAVR. The arrangements were made. The patient was sent to [facility] in [place] for TAVR. The case was discussed with Dr. Junior. The patient will have to follow up with Oncology, Dr. Stein, for further diagnostic workup of his questionable urinary mass in his urinary bladder. Job ID: [id number]
== END 2018-12-21 23:45 | disposition short-term general hospital (02) | DRG 286 ==
LOC: ERS 14:44 → ERHOLD 14:45 → OBSVTOIN 14:45 → 2NO 23:18
PROVIDERS: ADMIT Family Medicine; ATTEND Family Medicine
PROC: 4A023N8 Measurement of Cardiac Sampling and Pressure, Bilateral, Percutaneous Approach (ICD-10-PCS; principal; 2018-12-15)
PROC: B2161ZZ Fluoroscopy of Right and Left Heart using Low Osmolar Contrast (ICD-10-PCS; 2018-12-15)
DX: I13.0 Hypertensive heart and chronic kidney disease with heart failure and stage 1 through stage 4 chronic kidney disease, or unspecified chronic kidney disease (principal); I50.43 Acute on chronic combined systolic (congestive) and diastolic (congestive) heart failure; G93.41 Metabolic encephalopathy; C90.00 Multiple myeloma not having achieved remission; R18.8 Other ascites; N17.9 Acute kidney failure, unspecified; E87.1 Hypo-osmolality and hyponatremia; I35.0 Nonrheumatic aortic (valve) stenosis; E87.6 Hypokalemia; E88.09 Other disorders of plasma-protein metabolism, not elsewhere classified; M19.90 Unspecified osteoarthritis, unspecified site; L89.152 Pressure ulcer of sacral region, stage 2; M79.2 Neuralgia and neuritis, unspecified; E11.22 Type 2 diabetes mellitus with diabetic chronic kidney disease; D64.9 Anemia, unspecified; N18.3 Chronic kidney disease, stage 3 (moderate); R00.0 Tachycardia, unspecified; T44.4X5A Adverse effect of predominantly alpha-adrenoreceptor agonists, initial encounter; I95.9 Hypotension, unspecified; Z79.82 Long term (current) use of aspirin; Z88.0 Allergy status to penicillin; Z90.49 Acquired absence of other specified parts of digestive tract; Z79.84 Long term (current) use of oral hypoglycemic drugs
CPT/HCPCS: 36415; 36416; 71045; 76700; 76856; 80048; 80053; 80074; 80076; 82248; 82553; 82570; 83615; 83735; 83880; 84100; 84156; 84484; 84550; 85025; 85610; 85730; 93005; 93306; 93460; 93798; 94640; C1769; J1644; J1940; J2250; J3010; J7620; Q9967

== ENCOUNTER 2021-01-03 11:53 | Outpatient (CLI) | payer MEDICARE | END 2021-01-03 11:54 | disposition home or self-care (01) | LOC: BICRAD 11:53 | PROVIDERS: ATTEND Nurse Practitioner Family | DX: M25.512 Pain in left shoulder (principal) ==

== ENCOUNTER 2021-01-11 12:03 | Outpatient (CLI) | payer MEDICARE | END 2021-01-11 12:04 | disposition home or self-care (01) | LOC: BICCT 12:03 | PROVIDERS: ATTEND Nurse Practitioner Family | DX: M54.16 Radiculopathy, lumbar region (principal); C90.00 Multiple myeloma not having achieved remission; M25.78 Osteophyte, vertebrae; M48.061 Spinal stenosis, lumbar region without neurogenic claudication; Z87.81 Personal history of (healed) traumatic fracture | CPT/HCPCS: 72131 ==

== ENCOUNTER 2022-02-27 11:00 | Outpatient (CLI) | payer MEDICARE | END 2022-02-27 11:01 | disposition home or self-care (01) | LOC: PET 11:00 | PROVIDERS: ATTEND Internal Medicine Hematology & Oncology | DX: C90.02 Multiple myeloma in relapse (principal); C79.51 Secondary malignant neoplasm of bone | CPT/HCPCS: 78815; A9552 ==

== ENCOUNTER 2023-10-17 13:34 | Inpatient (IN) | payer MEDICARE ==
[2023-10-17 14:42] LABS: #Eosinphils 0.2 thou/uL (0.0-0.7); #Monocytes 0.7 thou/uL (0.11-0.59); #Neutrophils 8.1 thou/uL (1.40-6.50); %Basophils 0.1 % (0.0-1.0); %Eosinophils 1.9 % (0.0-10.0); %Lymphocytes 3.9 % (21.0-51.0); %Monocytes 7.6 % (0.0-10.0); Hematocrit 21.1 % (42.0-52.0); Hemoglobin 6.4 g/dL (14.0-18.0); Mean Corpuscular HGB CONC 30.3 g/dL (32.0-36.0); Mean Corpuscular Hemoglobin 31.5 pg (27.0-31.0); Mean Corpuscular Volume 103.9 fl (78.0-98.0); Mean Platelet Volume 10.1 fL (7.4-10.4); Platelet Count 170 10x3/uL (130-400); RBC Distribution Width 18.3 % (11.5-14.5); Red Blood Cell (RBC) Count 2.03 mill/uL (4.70-6.10); White Blood Cell (WBC) Count 9.4 10x3/uL (4.8-10.8)
[2023-10-17 14:55] LABS: INR-International Normal Ratio 1.3; PTT 26.5 sec (22.9-36.1); Prothrombin Time 16.4 sec (12.0-14.7)
[2023-10-17 15:00] LABS: ALT (SGPT) 25 U/L (8-55); AST (SGOT) 25 U/L (5-34); Alkaline Phosphatase 121 U/L (40-110); Anion Gap 15 mmol/L (10-20); BUN (Urea Nitrogen) 20 mg/dL (8.4-25.7); Bilirubin, Total 0.6 mg/dL (0.2-1.2); Calc. Creatinine Clearance 0 mL/min (70-130); Calcium 8.2 mg/dL (7.8-10.44); Carbon Dioxide 26 mmol/L (23-31); Chloride 106 mmol/L (98-107); Estimated GFR 89; Globulin 1.9 g/dL (2.4-3.5); Glucose 163 mg/dL (83-110); Potassium 3.1 mmol/L (3.5-5.1); Protein, Total 4.9 g/dL (5.8-8.1); Sodium 144 mmol/L (136-145)
[2023-10-17 15:03] LABS: Troponin I 0.039 ng/mL (< 0.028)
[2023-10-17 17:02] LABS: Bacteria/HPF None Seen HPF (None Seen); Bilirubin Negative (Negative); Blood, Urine Negative (Negative); CAUTI Indications for Culture Alt mental st,lethar; Clarity Clear (Clear); Glucose, Urine (Dipstick) Normal (Negative); Ketone, Urine Trace mg/dL (Negative); Leukocyte Negative Leu/uL (Negative); Nitrite Negative (Negative); Protein, Urine (Dipstick) 100 mg/dL (Neg-Trace); RBC/HPF 0-3 HPF (0-3); Specific Gravity, Urine 1.023 (1.002-1.036); Squamous Epithelial 0-3 HPF (0-3); Urobilinogen Normal mg/dL (Less than 2); WBC/HPF 0-3 HPF (0-3)
[2023-10-17 17:04] LABS: Urine Culture Reflex No No
[2023-10-17 17:31] LABS: SARS-CoV-2 NAA Rapid Test Not Detected (NotDetected)
[2023-10-17] MEDS ORDERED: Ondansetron ODT 4 MG TAB PO PRN (18:07)
[2023-10-17] MEDS ORDERED: Ondansetron PF 4 MG/2 ML Vial IVP PRN (18:07)
[2023-10-17] MEDS ORDERED: Acetaminophen 650 MG Suppository PR PRN (18:07)
[2023-10-17] MEDS ORDERED: Sodium Chloride 0.9% 1,000 ML IV SCH (18:15)
[2023-10-17] MEDS ORDERED: LevoFLOXacin 750 mg/D5W 150 ml Premix Bag ONE (18:50)
[2023-10-17] MEDS ORDERED: Furosemide 40 MG (4 mL) VIAL SLOW IVP SCH (19:30)
[2023-10-17 19:54] LABS: Iron 21 ug/dL (65-175); Iron Binding Capacity, Total 221 mcg/dL (261-462)
[2023-10-17 19:56] LABS: Troponin I 0.059 ng/mL (< 0.028)
[2023-10-17] MEDS ORDERED: Pantoprazole 40 MG VIAL IVP SCH (20:00)
[2023-10-17 20:16] LABS: Ferritin 669.14 ng/mL (22-322); Thyroid Stimulating Hormone 1.2476 uIU/mL (0.35-4.94)
[2023-10-17] MEDS ORDERED: Furosemide 100 MG (10 mL) VIAL ONE (23:16)
[2023-10-17] MEDS ORDERED: Pantoprazole 40 MG VIAL ONE (23:16)
[2023-10-17] MEDS ORDERED: LORazepam 2 MG/ML SYR.(CARPUJECT) IVP SCH (23:45)
[2023-10-17] MEDS ORDERED: LORazepam 2 MG/ML SYR.(CARPUJECT) ONE (23:53)
[2023-10-18 00:19] LABS: Troponin I 0.053 ng/mL (< 0.028)
[2023-10-18] MEDS ORDERED: Ipratropium/Albuterol 3 ML NEB NEB PRN (00:49)
[2023-10-18] MEDS ORDERED: Electrolyte Replacement Protocol 1 EACH FS SCH (01:00)
[2023-10-18] MEDS ORDERED: Magnesium 2 GM/50 ML(in water) 2 GM in Premix 1 BAG IVPB SCH (01:00)
[2023-10-18] MEDS ORDERED: Ipratropium/Albuterol 3 ML NEB NEB SCH (01:00)
[2023-10-18] MEDS ORDERED: Ipratropium/Albuterol 3 ML NEB ONE (01:40)
[2023-10-18] MEDS ORDERED: Magnesium 2 GM/50 ML BAG (IN WATER) ONE (05:53)
[2023-10-18] MEDS ORDERED: Potassium Chloride 20 MEQ (100 mL) BAG ONE (05:53)
[2023-10-18] MEDS: Potassium Chloride 20 MEQ in Premix 1 BAG IVPB SCH ×2 (05:57→10:24)
[2023-10-18 06:02] LABS: #Neutrophils 7.7 thou/uL (1.40-6.50); %Basophils 0.1 % (0.0-1.0); %Eosinophils 0.3 % (0.0-10.0); %Lymphocytes 5.8 % (21.0-51.0); %Monocytes 10.3 % (0.0-10.0); %Neutrophils 82.6 % (42.0-75.0); Hematocrit 24.2 % (42.0-52.0); Hemoglobin 7.6 g/dL (14.0-18.0); Mean Corpuscular HGB CONC 31.4 g/dL (32.0-36.0); Mean Corpuscular Hemoglobin 30.9 pg (27.0-31.0); Mean Platelet Volume 9.9 fL (7.4-10.4); Platelet Count 160 10x3/uL (130-400); RBC Distribution Width 18.9 % (11.5-14.5); Red Blood Cell (RBC) Count 2.46 mill/uL (4.70-6.10); White Blood Cell (WBC) Count 9.3 10x3/uL (4.8-10.8)
[2023-10-18 06:09] LABS: Mean Corpuscular Volume 98.4 fl (78.0-98.0)
[2023-10-18 06:21] LABS: Anion Gap 12 mmol/L (10-20); BUN (Urea Nitrogen) 17 mg/dL (8.4-25.7); Calc. Creatinine Clearance 96 mL/min (70-130); Calcium 8.4 mg/dL (7.8-10.44); Carbon Dioxide 31 mmol/L (23-31); Chloride 105 mmol/L (98-107); Estimated GFR 88; Glucose 166 mg/dL (83-110); Potassium 2.9 mmol/L (3.5-5.1); Sodium 145 mmol/L (136-145)
[2023-10-18] MEDS ORDERED: Potassium Chloride 20 MEQ in Premix 1 BAG IVPB SCH (08:45)
[2023-10-18] MEDS: Furosemide 40 MG (4 mL) VIAL SLOW IVP SCH ×2 (10:25→13:58)
[2023-10-18] MEDS: DULoxetine 60 MG CAP PO SCH (10:25)
[2023-10-18] MEDS: Senokot 8.6 MG TAB PO SCH (10:26)
[2023-10-18] MEDS: Sacubitril 24MG/Valsartan 26 MG TAB PO SCH ×2 (10:26→20:50)
[2023-10-18] MEDS: Pantoprazole 40 MG VIAL IVP SCH ×2 (10:26→20:50)
[2023-10-18] MEDS: Morphine ER 15 MG TAB PO SCH ×2 (10:26→23:38)
[2023-10-18] MEDS ORDERED: Iron, Sodium Ferric Gluconate 250 MG in Sodium Chloride 0.9% 250 ML 250 ML IVPB SCH (10:30)
[2023-10-18] MEDS: Morphine 4 MG/ML VIAL SLOW IVP PRN (13:56)
[2023-10-18 15:12] LABS: Potassium 2.7 mmol/L (3.5-5.1)
[2023-10-18 18:19] LABS: Hemoglobin 8.5 g/dL (14.0-18.0)
[2023-10-18] MEDS: Atorvastatin Calcium 10 MG TAB PO SCH (20:50)
[2023-10-18] MEDS: Potassium Chloride 20 MEQ TAB PO SCH (20:57)
[2023-10-19] MEDS: Morphine 4 MG/ML VIAL SLOW IVP PRN ×2 (02:52→18:23)
[2023-10-19] MEDS: Furosemide 40 MG (4 mL) VIAL SLOW IVP SCH ×2 (06:27→16:23)
[2023-10-19 08:19] LABS: #Eosinphils 0.1 thou/uL (0.0-0.7); #Monocytes 0.8 thou/uL (0.11-0.59); #Neutrophils 9.8 thou/uL (1.40-6.50); %Basophils 0.1 % (0.0-1.0); %Eosinophils 0.5 % (0.0-10.0); %Lymphocytes 4.2 % (21.0-51.0); %Monocytes 6.7 % (0.0-10.0); %Neutrophils 87.7 % (42.0-75.0); Hematocrit 24.5 % (42.0-52.0); Hemoglobin 7.7 g/dL (14.0-18.0); Mean Corpuscular HGB CONC 31.4 g/dL (32.0-36.0); Mean Corpuscular Hemoglobin 31.2 pg (27.0-31.0); Mean Corpuscular Volume 99.2 fl (78.0-98.0); Mean Platelet Volume 10.1 fL (7.4-10.4); Platelet Count 150 10x3/uL (130-400); RBC Distribution Width 20.6 % (11.5-14.5); Red Blood Cell (RBC) Count 2.47 mill/uL (4.70-6.10); White Blood Cell (WBC) Count 11.2 10x3/uL (4.8-10.8)
[2023-10-19 08:44] LABS: Anion Gap 12 mmol/L (10-20); BUN (Urea Nitrogen) 19 mg/dL (8.4-25.7); Calc. Creatinine Clearance 80 mL/min (70-130); Calcium 8.5 mg/dL (7.8-10.44); Carbon Dioxide 36 mmol/L (23-31); Chloride 105 mmol/L (98-107); Estimated GFR 87; Glucose 168 mg/dL (83-110); Potassium 2.9 mmol/L (3.5-5.1); Sodium 150 mmol/L (136-145)
[2023-10-19] MEDS: DULoxetine 60 MG CAP PO SCH ×2 (09:45→10:22)
[2023-10-19] MEDS: Morphine ER 15 MG TAB PO SCH (09:47)
[2023-10-19] MEDS: Senokot 8.6 MG TAB PO SCH (09:47)
[2023-10-19] MEDS: Sacubitril 24MG/Valsartan 26 MG TAB PO SCH ×3 (09:47→21:28)
[2023-10-19] MEDS: Pantoprazole 40 MG VIAL IVP SCH ×2 (09:47→21:27)
[2023-10-19] MEDS: Potassium Chloride 20 MEQ TAB PO SCH (10:22)
[2023-10-19] MEDS ORDERED: Morphine 4 MG/ML VIAL SLOW IVP SCH (10:45)
[2023-10-19] MEDS: Potassium Chloride 20 MEQ in Premix 1 BAG IVPB SCH ×2 (11:09→13:12)
[2023-10-19] MEDS: Dextrose 5% in Water 1,000 ML IV SCH (11:18)
[2023-10-19] MEDS ORDERED: Potassium Chloride 20 MEQ TAB PO SCH (13:00)
[2023-10-19 16:54] LABS: Magnesium 2.2 mg/dL (1.6-2.6)
[2023-10-19 17:19] LABS: Anion Gap 13 mmol/L (10-20); BUN (Urea Nitrogen) 21 mg/dL (8.4-25.7); Calc. Creatinine Clearance 84 mL/min (70-130); Calcium 8.6 mg/dL (7.8-10.44); Carbon Dioxide 33 mmol/L (23-31); Chloride 103 mmol/L (98-107); Estimated GFR 89; Glucose 181 mg/dL (83-110); Potassium 3.7 mmol/L (3.5-5.1); Sodium 145 mmol/L (136-145)
[2023-10-19] MEDS: Atorvastatin Calcium 10 MG TAB PO SCH (21:28)
[2023-10-20] MEDS: Morphine 4 MG/ML VIAL SLOW IVP PRN ×4 (03:50→20:57)
[2023-10-20 06:02] LABS: #Eosinphils 0.5 thou/uL (0.0-0.7); #Monocytes 0.7 thou/uL (0.11-0.59); #Neutrophils 7.3 thou/uL (1.40-6.50); %Basophils 0.2 % (0.0-1.0); %Eosinophils 5.4 % (0.0-10.0); %Monocytes 7.9 % (0.0-10.0); %Neutrophils 80.7 % (42.0-75.0); Hematocrit 25.3 % (42.0-52.0); Hemoglobin 7.5 g/dL (14.0-18.0); Mean Corpuscular HGB CONC 29.6 g/dL (32.0-36.0); Mean Corpuscular Hemoglobin 30.1 pg (27.0-31.0); Mean Corpuscular Volume 101.6 fl (78.0-98.0); Mean Platelet Volume 10.5 fL (7.4-10.4); Platelet Count 134 10x3/uL (130-400); RBC Distribution Width 20.3 % (11.5-14.5); Red Blood Cell (RBC) Count 2.49 mill/uL (4.70-6.10)
[2023-10-20 06:33] LABS: Anion Gap 12 mmol/L (10-20); BUN (Urea Nitrogen) 20 mg/dL (8.4-25.7); Calc. Creatinine Clearance 93 mL/min (70-130); Calcium 8.6 mg/dL (7.8-10.44); Carbon Dioxide 35 mmol/L (23-31); Chloride 103 mmol/L (98-107); Estimated GFR 92; Glucose 183 mg/dL (83-110); Potassium 3.5 mmol/L (3.5-5.1); Sodium 146 mmol/L (136-145)
[2023-10-20] MEDS: Furosemide 40 MG (4 mL) VIAL SLOW IVP SCH (08:04)
[2023-10-20] MEDS: Potassium Chloride 20 MEQ in Premix 1 BAG IVPB SCH ×2 (08:05→10:51)
[2023-10-20] MEDS: Pantoprazole 40 MG VIAL IVP SCH ×2 (08:05→20:57)
[2023-10-20] MEDS: Dextrose 5% in Water 1,000 ML IV SCH (08:06)
[2023-10-20] MEDS: DULoxetine 60 MG CAP PO SCH (08:07)
[2023-10-20] MEDS: Sacubitril 24MG/Valsartan 26 MG TAB PO SCH ×2 (08:07→20:58)
[2023-10-20] MEDS: Senokot 8.6 MG TAB PO SCH (08:07)
[2023-10-20] MEDS: Atorvastatin Calcium 10 MG TAB PO SCH (20:58)
[2023-10-21 06:36] LABS: #Eosinphils 0.5 thou/uL (0.0-0.7); #Monocytes 0.6 thou/uL (0.11-0.59); #Neutrophils 6.2 thou/uL (1.40-6.50); %Basophils 0.3 % (0.0-1.0); %Eosinophils 5.8 % (0.0-10.0); %Lymphocytes 5.5 % (21.0-51.0); %Neutrophils 79.5 % (42.0-75.0); Hematocrit 24.1 % (42.0-52.0); Hemoglobin 7.3 g/dL (14.0-18.0); Mean Corpuscular HGB CONC 30.3 g/dL (32.0-36.0); Mean Corpuscular Hemoglobin 30.9 pg (27.0-31.0); Mean Corpuscular Volume 102.1 fl (78.0-98.0); Mean Platelet Volume 10.5 fL (7.4-10.4); Platelet Count 125 10x3/uL (130-400); Red Blood Cell (RBC) Count 2.36 mill/uL (4.70-6.10); White Blood Cell (WBC) Count 7.8 10x3/uL (4.8-10.8)
[2023-10-21 07:03] LABS: Anion Gap 13 mmol/L (10-20); BUN (Urea Nitrogen) 17 mg/dL (8.4-25.7); Calc. Creatinine Clearance 89 mL/min (70-130); Calcium 8.7 mg/dL (7.8-10.44); Carbon Dioxide 32 mmol/L (23-31); Chloride 97 mmol/L (98-107); Estimated GFR 91; Glucose 176 mg/dL (83-110); Sodium 138 mmol/L (136-145)
[2023-10-21] MEDS: Morphine 4 MG/ML VIAL SLOW IVP PRN (09:31)
[2023-10-21] MEDS: Pantoprazole 40 MG VIAL IVP SCH ×2 (09:31→20:16)
[2023-10-21] MEDS: Furosemide 40 MG (4 mL) VIAL SLOW IVP SCH (09:31)
[2023-10-21] MEDS: DULoxetine 60 MG CAP PO SCH (09:31)
[2023-10-21] MEDS: Senokot 8.6 MG TAB PO SCH (09:31)
[2023-10-21] MEDS: Sacubitril 24MG/Valsartan 26 MG TAB PO SCH ×2 (09:31→20:16)
[2023-10-21] MEDS: Acetaminophen 325 MG TAB PO PRN (12:10)
[2023-10-21] MEDS: Dextrose 5% in Water 1,000 ML IV SCH (13:04)
[2023-10-21] MEDS: Morphine 2 MG/ML VIAL SLOW IVP PRN ×2 (15:33→20:15)
[2023-10-21] MEDS: Atorvastatin Calcium 10 MG TAB PO SCH (20:16)
[2023-10-22] MEDS: Morphine 2 MG/ML VIAL SLOW IVP PRN ×4 (00:16→16:46)
[2023-10-22 05:12] LABS: #Eosinphils 0.2 thou/uL (0.0-0.7); #Monocytes 0.7 thou/uL (0.11-0.59); #Neutrophils 6.5 thou/uL (1.40-6.50); %Basophils 0.4 % (0.0-1.0); %Eosinophils 2.4 % (0.0-10.0); %Lymphocytes 6.2 % (21.0-51.0); %Monocytes 8.2 % (0.0-10.0); %Neutrophils 81.5 % (42.0-75.0); Hematocrit 23.7 % (42.0-52.0); Hemoglobin 7.2 g/dL (14.0-18.0); Mean Corpuscular HGB CONC 30.4 g/dL (32.0-36.0); Mean Corpuscular Hemoglobin 30.1 pg (27.0-31.0); Mean Corpuscular Volume 99.2 fl (78.0-98.0); Mean Platelet Volume 10.7 fL (7.4-10.4); Platelet Count 127 10x3/uL (130-400); RBC Distribution Width 18.6 % (11.5-14.5); Red Blood Cell (RBC) Count 2.39 mill/uL (4.70-6.10); White Blood Cell (WBC) Count 7.9 10x3/uL (4.8-10.8)
[2023-10-22 05:35] LABS: Anion Gap 14 mmol/L (10-20); BUN (Urea Nitrogen) 19 mg/dL (8.4-25.7); Calc. Creatinine Clearance 75 mL/min (70-130); Calcium 8.7 mg/dL (7.8-10.44); Carbon Dioxide 31 mmol/L (23-31); Chloride 97 mmol/L (98-107); Estimated GFR 86; Glucose 160 mg/dL (83-110); Potassium 3.8 mmol/L (3.5-5.1); Sodium 138 mmol/L (136-145)
[2023-10-22] MEDS: Sacubitril 24MG/Valsartan 26 MG TAB PO SCH (09:51)
[2023-10-22] MEDS: Senokot 8.6 MG TAB PO SCH (09:51)
[2023-10-22] MEDS: DULoxetine 60 MG CAP PO SCH (09:51)
[2023-10-22] MEDS: Pantoprazole 40 MG VIAL IVP SCH (09:52)
[2023-10-22 11:12] VITALS: BMI 25.0
[2023-10-22] MEDS ORDERED: rOPINIRole HCl 0.25 MG TAB PO SCH (15:00)
[2023-10-22] MEDS ORDERED: Lactulose 20 GM (30 mL) UDCUP PO SCH (15:15)
[2023-10-22] MEDS ORDERED: Lactulose 20 GM (30 mL) UDCUP PO PRN (15:15)
[2023-10-22 15:49] VITALS: BP 105/35; TEMP 98.8
[2023-10-22] MEDS: Acetaminophen 325 MG TAB PO PRN (16:45)
== END 2023-10-22 17:32 | disposition hospice, inpatient (51) | DRG 377 ==
LOC: ERS 13:34 → ERHOLD 18:18 → 2SE 10-18 06:49
PROVIDERS: ADMIT Hospitalist; ATTEND Family Medicine
PROC: 30233J1 Transfusion of Nonautologous Serum Albumin into Peripheral Vein, Percutaneous Approach (ICD-10-PCS; principal; 2023-10-18)
DX: K92.1 Melena (principal); G92.8 Other toxic encephalopathy; I21.A1 Myocardial infarction type 2; I50.23 Acute on chronic systolic (congestive) heart failure; J18.9 Pneumonia, unspecified organism; E87.0 Hyperosmolality and hypernatremia; C90.00 Multiple myeloma not having achieved remission; D62 Acute posthemorrhagic anemia; E87.6 Hypokalemia; Z66 Do not resuscitate; Z90.49 Acquired absence of other specified parts of digestive tract; E78.5 Hyperlipidemia, unspecified; I11.0 Hypertensive heart disease with heart failure; Z95.0 Presence of cardiac pacemaker; Z79.899 Other long term (current) drug therapy; Z88.0 Allergy status to penicillin; Z88.8 Allergy status to other drugs, medicaments and biological substances; I35.0 Nonrheumatic aortic (valve) stenosis; M25.552 Pain in left hip; I50.83 High output heart failure; Z11.52 Encounter for screening for COVID-19; D50.9 Iron deficiency anemia, unspecified
CPT/HCPCS: 36415; 36430; 70450; 71045; 80048; 80053; 81001; 82274; 82607; 82728; 83540; 83550; 83735; 83880; 84145; 84443; 84484; 85025; 85610; 85730; 86850; 86870; 86900; 86901; 86922; 93005; 93306; 94640; 96365; 97139; C9113; J1940; J1956; J2060; J2270; J2272; J3475; J3480; J7070; J7620; P9016